=== PATIENT | female | born 1945 | race Caucasian/White ===

== ENCOUNTER 2017-10-30 09:33 | Inpatient (IN) | payer OTHER, MEDICARE ==
[~2017-10-30] VITALS: Ht 152.4 cm; Wt 55.0 kg
[~2017-10-30 09:33] MED LIST: ACIDOPHILUS1 CAP PO; ALPH-E-MIXED-4400 IU PO; ASPIRIN CHILDRE81 MG PO; ATENOLOL25 M1 PO; BENZONATATE100 MG PO; BUPROPION XL300 M1 PO; BUTALB-ACETAMI1 EAC1 PO; BUTALBITAL, ACE1 CA1 PO; CALCIUM600 M3 PO; COLACE100 MG PO; COMPAZINE10 MG PO; CYTOMEL5 MCG PO; DIAZEPAM5 M1 PO; ESTRACE1 MG PO; FISH OIL 1,2001 EAC2 PO; FLUOXETINE HCL60 MG PO; K-DUR 20MEQ TA20 MEQ PO; LEVOTHYROXINE137 MCG PO; MORPHINE SULFAT15 M2 PO; MOTRIN 800MG T800 MG PO; MULTIPLE VITAM1 EAC2 PO; OXYBUTYNIN CHLOR5 M2 PO; OXYCODONE HCL20 M2 PO; OXYCODONE HYDRO15 MG PO; OXYCONTIN30 M1 PO; OXYCONTIN80 MG PO; PERCOCET 325 MG1 TAB PO; PRAVACHOL40 M1 PO; PRILOSEC OTC20 M1 PO; TOPAMAX50 M1 PO; TOPIRAMATE50 MG PO; ZOFRAN ODT4 MG PO
--- NOTE | 2017-10-30 12:06 | ED GENERAL ADULT ---
History of Present Illness General Chief Complaint: Abdominal Pain/Flank Pain Stated Complaint: ABD PAIN +DIARRHEA Source: patient Exam Limitations: poor historian Vital Signs & Intake/Output Vital Signs & Intake/Output Vital Signs Date Time Temp Pulse Resp B/P B/P Pulse O2 O2 Flow FiO2 Mean Ox Delivery Rate 11/01 0659 86 184/84 11/01 0620 98.4 69 20 198/86 100 Room Air 10/313 98.6 70 20 148/80 97 Room Air 10/31 2024 100.1 70 20 180/80 97 Room Air 10/31 2022 70 180/80 10/31 1358 98.4 62 20 100/70 10/31 1342 98.4 62 20 100/70 97 Room Air ED Intake and Output 11/01 0000 10/31 1200 Intake Total 465 660 Output Total 200 200 Balance 265 460 Intake, IV 225 600 Intake, Oral 240 60 Number 1 Bowel Movements Output, Urine 200 200 Patient 120 lb Weight Weight Bed scale Measurement Method Allergies Coded Allergies: cephalexin (Severe, HIVES 01/03/17) codeine (Severe, HIVES 01/03/17) meperidine (Severe, SYNCOPE 01/03/17) Triage Note: C/O WORSENING ABDOMINAL PAIN, DIARRHEA, NO APPETITE, SWEATING X 1 WEEK. Triage Nurses Notes Reviewed? yes Onset: Abrupt Duration: week(s):, constant Timing: recent history Injury Environment: home Severity: moderate, severe HPI: 72-year-old female comes into the emergency room with multiple complaints. She reports that she was started on Cymbalta about a month ago. She started to experience neurological side effects with short-term memory loss and was very forgetful. She reports that she's been having abdominal cramping and diarrhea. The symptoms began going on for a few weeks but worse over the past week. She reports about a 40 pound weight loss over the course of the last few months. She denies any vomiting or nausea. Multiple previous abdominal surgeries. Patient only able to drink oral liquids. No blood in her stool. (Bo Chu) Reconcile Medications Atenolol 25 MG TABLET 1 TAB PO TID BP (Reported) Bupropion HCl (Bupropion XL) 300 MG TAB.ER.24H 1 TAB PO QAM MENTAL HEALTH ( Reported) Buspirone HCl 5 MG TABLET 0.5 TAB PO BID MENTAL HEALTH (Reported) Butalb/Acetaminophen/Caffeine (Ofvkml-Jpquuyel-Bvcm 50-300-40) 50 MG-300 MG-40 MG CAPSULE 1 CAP PO TID HEADACHE (Reported) Diazepam 5 MG TABLET 1 TAB PO BIDP PRN PAIN (Reported) Docusate Sodium (Stool Softener) 100 MG CAPSULE 1 CAP PO BID STOMACH PROBLEMS (Reported) Estradiol (Estrace) 1 MG TABLET 0.5 TAB PO DAILY HRT (Reported) Fluoxetine HCl 60 MG TABLET 1 TAB PO DAILY MENTAL HEALTH (Reported) Levothyroxine Sodium 137 MCG TABLET 1 TAB PO DAILY AC THYROID (Reported) Linaclotide (Linzess) 290 MCG CAPSULE 1 CAP PO DAILY GI (Reported) Losartan Potassium 50 MG TABLET 1 TAB PO DAILY HEART (Reported) Omeprazole Magnesium (Prilosec Otc) 20 MG TABLET.DR 1 TAB PO BID GI (Reported ) Oxycodone HCl 20 MG TABLET 1 TAB PO Q6 PAIN (Reported) Oxycodone HCl (Oxycontin) 30 MG TAB.ER.12H 1 TAB PO TID PAIN (Reported) Oxycodone Myristate (Xtampza ER) 27 MG CAP.SPR.12 1 TAB PO BID PAIN (Reported ) Pantoprazole Sodium (Protonix) 40 MG TABLET.DR 1 TAB PO DAILY GI (Reported) Pravastatin Sodium (Pravachol) 40 MG TABLET 1 TAB PO DAILY CHOLESTEROL ( Reported) Topiramate (Topamax) 50 MG TABLET 1 TAB PO BID HEADACHE (Reported) Ubidecarenone (Co Q-10) 100 MG CAPSULE 1 CAP PO DAILY SUPPLEMENT (Reported) (Gisela CABALLERO,[facility]) Past History Travel History Traveled to [place] past 21 day No Medical History Any Pertinent Medical History? 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 No (Francesco HARVEYBo) Review of Systems Review of Systems Constitutional: Reports: no symptoms. EENTM: Reports: no symptoms. Respiratory: Reports: no symptoms. Cardiovascular: Reports: no symptoms. GI: Reports: see HPI. Genitourinary: Reports: no symptoms. Musculoskeletal: Reports: no symptoms. Skin: Reports: no symptoms. Neurological/Psychological: Reports: see HPI. Hematologic/Endocrine: Reports: no symptoms. Immunologic/Allergic: Reports: no symptoms. All Other Systems: Reviewed and Negative (Bo Chu) Physical Exam Physical Exam General Appearance: well developed/nourished, alert, awake, mild distress Head: atraumatic Eyes: Bilateral: normal appearance. Ears, Nose, Throat: normal ENT inspection, hearing grossly normal Neck: normal inspection Respiratory: normal breath sounds, no respiratory distress Cardiovascular: regular rate/rhythm Gastrointestinal: soft, tenderness Back: normal inspection Extremities: normal inspection, no edema Neurologic/Psych: awake, alert, oriented x 3 Skin: intact, normal color Core Measures ACS in differential dx? No CVA/TIA Diagnosis: No Sepsis Present: No Sepsis Focused Exam Completed? No (Bo Chu) Progress Differential Diagnoses I considered the following diagnoses in my evaluation of the patient: C. difficile colitis, colon CA, malignancy, diverticulitis, bowel obstruction, viral syndrome, medication side effect, Plan of Care: Orders Procedure Date/time Status BASIC ELECTROLYTES PLUS BUN&CR 11/01 0600 Active VITAMIN B12 10/31 0858 Complete Lab Add-on Test 10/31 UNK Active Nursing Misc 10/31 UNK Active Current Medications Sig/Talat Start time Last Medication Dose Stop Time Status Admin Dextrose/Sodium 1,000 ML Q13H 10/31 1915 AC 11/01 Chloride 0607 (D5W-1/2 Normal Saline 1000ML) Oxycodone HCl 20 MG Q6 10/31 1800 AC 10/31 (Roxicodone) 2342 Pravastatin Sodium 40 MG 1700 10/31 1700 AC 10/31 (Pravachol) 1817 Diazepam 5 MG BID PRN 10/31 1545 AC (Valium) Bupropion HCl 300 MG QAM 10/31 0900 AC 10/31 (Wellbutrin XL) 0852 Estradiol 0.5 MG DAILY 10/31 0900 AC 10/31 (Estrace) 0853 Fluoxetine HCl 60 MG DAILY 10/31 0900 AC 10/31 (Prozac) 0852 Losartan Potassium 50 MG DAILY 10/31 09 AC 11/01 (Cozaar) 0659 Topiramate 50 MG BID 10/31 899 AC 10/31 (Topamax) 2022 Levothyroxine Sodium 0.137 MG DAILY AC 10/31 07 AC 11/01 (Synthroid) 05 Omeprazole 20 MG DAILY AC 10/31 07 AC 11/01 (Prilosec) 05 Heparin Sodium 5,000 UNIT Q8 10/31 599 AC (Porcine) Atenolol 25 MG TID 10/30 2099 AC 10/31 (Tenormin) 2022 Buspirone HCl 2.5 MG BID 10/30 2099 AC 10/31 (Buspar) 2023 Docusate Sodium 100 MG BID 10/30 2099 AC (Colace) Hydromorphone HCl 1 MG Q3P PRN 10/31 1999 AC 11/01 (Dilaudid) 05 Laboratory Tests 10/31/17 1847: Carotene Pending 10/31/17 1800: Ref Lab Test Result Pending Diagnostic Imaging: Viewed by Me: Radiology Read, CT Scan. Discussed w/RAD: Radiology Read, CT Scan. Radiology Impression: PATIENT: LOR POSEY PRESENT AGE: 72 PATIENT ACCOUNT NO: [id number] : 47 LOCATION: [facility] ORDERING PHYSICIAN: Bo HARVEY SERVICE DATE: 10/30/171205 EXAM TYPE: CAT - CT ABD & PELVIS W IV CONTRAST EXAMINATION: CT ABDOMEN AND PELVIS WITH CONTRAST CLINICAL INFORMATION: 72-year-old female with abdominal pain. Palpable mass lower abdomen. Weight loss. Diarrhea. COMPARISON: CT of the abdomen and pelvis done on 01/03/2017. TECHNIQUE: Multidetector volumetric imaging was performed of the abdomen and pelvis following IV administration of 95 mL of Optiray 320 intravenous contrast. Sagittal and coronal reformatted images were obtained on the technologist's workstation. DLP: 252.6 mGy-cm FINDINGS: LUNG BASES: Nonspecific pleural-based triangular airspace opacity is noted at right lung base, unchanged. The remainder of the lung perez are clear. LIVER, GALLBLADDER, AND BILIARY TREE: Subtle sub-5 mm hypodensity is noted within segment 6/7 of right lobe of the liver (image 163/616 series 3), appears unchanged. The remainder of the liver appears unremarkable. The portal, hepatic veins are patent. The gallbladder is surgically absent. There is no intrahepatic biliary ductal dilatation present. The extrahepatic biliary duct is mildly dilated, unchanged. PANCREAS: Mostly atrophied, unchanged. SPLEEN: Unremarkable. ADRENAL GLANDS: No discrete mass present. KIDNEYS AND URETERS: Large exophytic cortical renal cyst is noted at the inferior pole of the left kidney, measures approximately 6 cm, unchanged. Otherwise both kidneys are unremarkable, unchanged. BLADDER: Unremarkable. GASTROINTESTINAL TRACT: Postsurgical changes are noted at the sigmoid colon, unchanged. The remainder of the visualized large bowel is unremarkable. The stomach is suboptimally distended. The small bowel loops are decompressed. The previously seen mild small bowel wall thickening, hyperemia is no longer visualized. The appendix is visualized at right iliac fossa, unchanged. Specifically no abnormal bowel dilatation, air-fluid level suggestive of obstruction present. ABDOMINAL WALL: Fat-containing small ventral hernia is noted slightly to the right of the midline just above the level of the symphysis pubis (see the pollard images), unchanged. LYMPH NODES: There are no pathologically enlarged retroperitoneal, mesenteric, pelvic and/or inguinal, groin lymphadenopathy present. VASCULAR: Mild diffuse atherosclerotic disease is noted within the aorta and its branches without aneurysm formation. PELVIC VISCERA: There is no pelvic mass present. There is no free fluid and/or free air present. OSSEOUS STRUCTURES: Intervertebral fusion is noted at L3-L4 with superimposed multilevel degenerative spondylosis. No significant change. IMPRESSION: No CT evidence of any acute intra-abdominal and/or intrapelvic pathology present. Specifically, previously identified abnormal morphologic appearance of the distal small bowel within the right lower quadrant is no longer reproduced. Currently no CT evidence of any bowel obstruction or perforation or discrete intra-abdominal and/or intrapelvic mass present. DICTATED BY: Riaz Latif MD DATE/TIME DICTATED:10/30/171338 ASSEMBLER ENGINE:ARMOND DATE/TIME TRANSCRIBED:10/30/171338 CONFIDENTIAL, DO NOT COPY WITHOUT APPROPRIATE AUTHORIZATION. <Electronically signed in Other Vendor System> SIGNED BY: Riaz Latif MD 10/30/17 1410, PATIENT: LOR POSEY PRESENT AGE: 72 PATIENT ACCOUNT NO: [id number] : 47 LOCATION: [facility] ORDERING PHYSICIAN: Bo HARVEY SERVICE DATE: 10/30/17 EXAM TYPE: RAD - XRY-PORTABLE CHEST XRAY EXAMINATION: XR PORTABLE CHEST CLINICAL INFORMATION: Weight loss. Suspected mass. COMPARISON: Chest done on 12/27/2014. TECHNIQUE: Portable frontal view of the chest was obtained. FINDINGS: Both lungs are symmetrically expanded, and appear clear. The cardiac mediastinal silhouette is within normal limit. There is no pleural effusion or pneumothorax present. The visualized upper abdomen is unremarkable. IMPRESSION: No acute cardiopulmonary disease. Specifically, no no radiographic evidence of any discrete" lung mass" identified. DICTATED BY: Riaz Latif MD DATE/TIME DICTATED:10/30/171352 ASSEMBLER ENGINE:ARMOND DATE/TIME TRANSCRIBED:10/30/171352 CONFIDENTIAL, DO NOT COPY WITHOUT APPROPRIATE AUTHORIZATION. <Electronically signed in Other Vendor System> SIGNED BY: Riaz Latif MD 10/30/171357 Initial ED EKG: normal sinus rhythm, rate (68), BORDERLINE T WAVE ABNORMALITIES (Bo Chu) Departure Departure Disposition: STILL A PATIENT Condition: Stable Clinical Impression Primary Impression: Intractable abdominal pain Secondary Impressions: Diarrhea, Hypertension Referrals: Jeb CABALLERO,Sung Wagoner (PCP/Family) Departure Forms: Customer Survey General Discharge Information Admission Note Spoke With: Lucrecia Romeo MD Documentation of Exam: Documentation of any treatments & extenuating circumstances including Concerns Regarding Discharge (functional status, medication knowledge or non-compliance, living conditions, etc.) that warrant an admission rather than observation: GI consultation. Gentle IV hydration. Repeat labs. Med management. Blood pressure control. Possibly cardiac consultation. Psych consultation. Medically not safe for discharge at this time. Patient will likely require greater than 72 hours of care. (Bo Chu) PA/EDGE POLISHER Co-Sign Statement Statement: ED Attending supervision documentation- [] I saw and evaluated the patient. I have also reviewed all the pertinent lab results and diagnostic results. I agree with the findings and the plan of care as documented in the PA's/EDGE POLISHER's documentation. [x] I have reviewed the ED Record and agree with the PA's/EDGE POLISHER's documentation. [] Additions or exceptions (if any) to the PAs/EDGE POLISHER's note and plan are summarized below: [] (Gisela CABALLERO,Balaji) Critical Care Note Critical Care Note Critical Care Time: 30-74 min (35) (Francesco HARVEY,Bo)
[2017-10-30 12:31] LABS: ABSOLUTE BASOPHIL COUNT 0 /CUMM (0.0-0.2); ABSOLUTE EOSINOPHIL COUNT 0 /CUMM (0.0-0.7); ABSOLUTE GRANULOCYTE CT 3.5 /CUMM (1.4-6.5); ABSOLUTE LYMPH COUNT 1.6 /CUMM (1.2-3.4); ABSOLUTE MONOCYTE COUNT 0.4 /CUMM (0.10-0.60); BASOPHIL % 0.5 % (0.0-2.0); EOSINOPHIL % 0.6 % (0-5); GRANULOCYTE % 62.8 % (42.2-75.2); HEMATOCRIT 42.5 % (37-47); MEAN CORPUSCULAR HGB CONC 33.8 G/DL (33.0-37.0); MEAN CORPUSCULAR VOLUME 85.7 FL (81.0-99.0); MEAN PLATELET VOLUME 8.5 FL (7.4-10.4); PLATELET COUNT 216 /CUMM (130-400); RBC DISTRIBUTION WIDTH 17.1 % (11.5-14.5); RED BLOOD CELL CT 4.95 /CUMM (4.20-5.40); WHITE BLOOD CELL COUNT 5.6 /CUMM (4.8-10.8)
[2017-10-30] MEDS ORDERED: XTAMPZA ER27 MG PO (12:31)
[2017-10-30] MEDS ORDERED: BUSPIRONE HCL5 M1 PO (12:33)
[2017-10-30] MEDS ORDERED: STOOL SOFTENER100 M3 PO (12:34)
[2017-10-30] MEDS ORDERED: PROTONIX40 M3 PO (12:35)
[2017-10-30] MEDS ORDERED: LINZESS290 MC1 PO (12:35)
[2017-10-30] MEDS ORDERED: CO Q-10100 MG PO (12:35)
[2017-10-30] MEDS ORDERED: DIAZEPAM5 M1 PO (12:36)
[2017-10-30] MEDS ORDERED: DULOXETINE HCL20 MG PO (12:36)
[2017-10-30] MEDS ORDERED: LOSARTAN POTASS50 M1 PO (12:36)
--- NOTE | 2017-10-30 13:58 | RADIOLOGY REPORT ---
EXAMINATION: XR PORTABLE CHEST CLINICAL INFORMATION: Weight loss. Suspected mass. COMPARISON: Chest done on 12/27/2014. TECHNIQUE: Portable frontal view of the chest was obtained. FINDINGS: Both lungs are symmetrically expanded, and appear clear. The cardiac mediastinal silhouette is within normal limit. There is no pleural effusion or pneumothorax present. The visualized upper abdomen is unremarkable. IMPRESSION: No acute cardiopulmonary disease. Specifically, no no radiographic evidence of any discrete" lung mass" identified.
--- NOTE | 2017-10-30 14:10 | CT SCAN REPORT ---
EXAMINATION: CT ABDOMEN AND PELVIS WITH CONTRAST CLINICAL INFORMATION: 72-year-old female with abdominal pain. Palpable mass lower abdomen. Weight loss. Diarrhea. COMPARISON: CT of the abdomen and pelvis done on 01/03/2017. TECHNIQUE: Multidetector volumetric imaging was performed of the abdomen and pelvis following IV administration of 95 mL of Optiray 320 intravenous contrast. Sagittal and coronal reformatted images were obtained on the technologist's workstation. DLP: 252.6 mGy-cm FINDINGS: LUNG BASES: Nonspecific pleural-based triangular airspace opacity is noted at right lung base, unchanged. The remainder of the lung perez are clear. LIVER, GALLBLADDER, AND BILIARY TREE: Subtle sub-5 mm hypodensity is noted within segment 6/7 of right lobe of the liver (image 163/616 series 3), appears unchanged. The remainder of the liver appears unremarkable. The portal, hepatic veins are patent. The gallbladder is surgically absent. There is no intrahepatic biliary ductal dilatation present. The extrahepatic biliary duct is mildly dilated, unchanged. PANCREAS: Mostly atrophied, unchanged. SPLEEN: Unremarkable. ADRENAL GLANDS: No discrete mass present. KIDNEYS AND URETERS: Large exophytic cortical renal cyst is noted at the inferior pole of the left kidney, measures approximately 6 cm, unchanged. Otherwise both kidneys are unremarkable, unchanged. BLADDER: Unremarkable. GASTROINTESTINAL TRACT: Postsurgical changes are noted at the sigmoid colon, unchanged. The remainder of the visualized large bowel is unremarkable. The stomach is suboptimally distended. The small bowel loops are decompressed. The previously seen mild small bowel wall thickening, hyperemia is no longer visualized. The appendix is visualized at right iliac fossa, unchanged. Specifically no abnormal bowel dilatation, air-fluid level suggestive of obstruction present. ABDOMINAL WALL: Fat-containing small ventral hernia is noted slightly to the right of the midline just above the level of the symphysis pubis (see the pollard images), unchanged. LYMPH NODES: There are no pathologically enlarged retroperitoneal, mesenteric, pelvic and/or inguinal, groin lymphadenopathy present. VASCULAR: Mild diffuse atherosclerotic disease is noted within the aorta and its branches without aneurysm formation. PELVIC VISCERA: There is no pelvic mass present. There is no free fluid and/or free air present. OSSEOUS STRUCTURES: Intervertebral fusion is noted at L3-L4 with superimposed multilevel degenerative spondylosis. No significant change. IMPRESSION: No CT evidence of any acute intra-abdominal and/or intrapelvic pathology present. Specifically, previously identified abnormal morphologic appearance of the distal small bowel within the right lower quadrant is no longer reproduced. Currently no CT evidence of any bowel obstruction or perforation or discrete intra-abdominal and/or intrapelvic mass present.
--- NOTE | 2017-10-30 17:55 | History & Physical ---
Gurpreet Pastor 10/30/17 3114: General Information and HPI MD Statement: I have seen and personally examined LOR POSEY and documented this H&P. The patient is a 72 year old F who presented with a patient stated chief complaint of [intractable abdominal pain]. Source of Information: patient, family, old records Exam Limitations: poor historian History of Present Illness: Ms. posey is a 72-year-old female with a past medical history of migraines, hypertension, hypothyroid, chronic pain syndrome, depression who presents with a one-month history of intractable abdominal pain described as shaking twisting coiling, associated with weakness, nonbloody diarrhea, mental fatigue, and a 40 pound weight loss 20 of which were intentional in the setting of starting Cymbalta 4 weeks ago and discontinuing it 2 weeks ago. Patient states that she decided to come in today because the pain continually gets worse and the diarrhea is worse. Patient also states that she has poor p.o. intake, and is only drinking cristal david for the past week. Per patient, these symptoms all started after visiting a new psychiatrist as her previous psychiatrist retired. Patient states that "that devil" started her on Cymbalta, and decreased her Prozac from 80 mg to 60 mg. Patient states that after starting the Cymbalta, she became mentally foggy, aggressive in language, and she began having severe debilitating abdominal pain along with diarrhea. Patient states that she took the medication for 2 weeks, and then discontinued it due to the symptoms. Patient states that the mental fog did improve, however her diarrhea and her abdominal pain continued to get worse. Patient states that she has had previous workups in the past, most recently 2014, for the same abdominal pain, but the Cymbalta seems to have triggered it mostly so. Patient also states that she is incredibly anxious, having run out of her Valium prescription and having to halve and quarter her tablets over the past 4 weeks. Patient does deny vomiting , and admits that initially she tried to lose 20 pounds, but does say that the other 20 pounds were unintentional. Patient states that everything she is taken has not improved the pain, and eating exacerbates the pain. Patient states that the pain is nonradiating, but does feel like it twists her stomach into knots. Patient states pain is constant, unrelenting, unremitting. Patient expresses extreme anxiety about Cymbalta. Patient also was hypertensive, but states that she did not take any of her medications today. Past medical history: Migraine, hypertension, hypothyroid, chronic pain syndrome , depression Allergies: Denies Past surgical history: Multiple back surgeries, laminectomy, cervical spinal fusion Family history: Noncontributory Social history: Denies smoking, drinking, illicit drug use Review of systems: POSITIVE FOR: 40 pound weight loss 20 which is intentional, nausea, diarrhea nonbloody NEGATIVE FOR: Fevers/chills/blurred vision/chest pain/palpitations/shortness of breath/urinary symptoms/lower extremity edema Allergies/Medications Allergies: Coded Allergies: cephalexin (Severe, HIVES 01/03/17) codeine (Severe, HIVES 01/03/17) meperidine (Severe, SYNCOPE 01/03/17) Past History Travel History Traveled to [place] past 21 day No Medical History Neurological: NONE EENT: NONE Cardiovascular: hypertension Respiratory: NONE Gastrointestinal: NONE Hepatic: NONE Renal: NONE Musculoskeletal: chronic back pain, CHRONIC NECK PAIN Psychiatric: NONE Endocrine: hypothyroidism Blood Disorders: NONE Cancer(s): NONE TELECOMMUNICATIONS SUPPORT/Reproductive: NONE History of MRSA: No History of VRE: No History of CDIFF: No Surgical History Surgical History: cholecystectomy, colon resection, , hysterectomy, BOWEL RESECTION Past Family/Social History Psychosocial History Services at Home: None ETOH Use: denies use Review of Systems Review of Systems Constitutional: Reports: see HPI. Exam & Diagnostic Data Last 24 Hrs of Vital Signs/I&O Vital Signs Date Time Temp Pulse Resp B/P B/P Pulse O2 O2 Flow FiO2 Mean Ox Delivery Rate 10/30 1932 98.7 67 18 134/61 96 Room Air 10/30 1705 72 18 149/63 10/30 1705 72 18 149/63 10/30 1705 98.4 72 18 149/63 97 Room Air 10/30 1457 98.4 74 18 209/83 97 10/30 1225 Room Air 10/30 1118 98.8 63 18 218/91 100 Intake & Output 10/30 1600 10/30 0800 10/30 0000 Intake Total Output Total Balance Patient 115 lb Weight Weight Reported by Patient Measurement Method Physical Exam General Appearance Alert, Oriented X3, Cooperative, No Acute Distress Skin No Significant Lesion Skin Temp/Moisture Exam: Warm/Dry Cardiovascular Regular Rate, Normal S1, Normal S2 Lungs Clear to Auscultation, Normal Air Movement Abdomen GENERALIZED TENDERNESS Neurological Normal Speech, Sensation Intact Extremities No Edema Last 24 Hrs of Labs/Jacob: Laboratory Tests 10/30/17 1455: Lactic Acid Cancelled 10/30/17 1215: Anion Gap 9, Estimated GFR > 60, BUN/Creatinine Ratio 7.1, Glucose 107 H, Lactic Acid 1.0, Calcium 9.3, Total Bilirubin 0.4, AST 17, ALT 24, Alkaline Phosphatase 114, Troponin I < 0.01, Total Protein 6.6, Albumin 3.8, Globulin 2.8 , Albumin/Globulin Ratio 1.4, Amylase 39, Lipase 57, CBC w Diff NO MAN DIFF REQ, RBC 4.95, MCV 85.7, MCH 29.0, MCHC 33.8, RDW 17.1 H, MPV 8.5, Gran % 62.8, Lymphocytes % 28.1, Monocytes % 8.0, Eosinophils % 0.6, Basophils % 0.5, Absolute Granulocytes 3.5, Absolute Lymphocytes 1.6, Absolute Monocytes 0.4, Absolute Eosinophils 0, Absolute Basophils 0 Microbiology 10/30 1953 STOOL: Clostridium difficile Toxin A & B - COLB 10/30 1953 STOOL: Stool Culture - COLB Assessment/Plan Assessment: Ms. posey is a 72-year-old female with a past medical history of migraines, hypertension, hypothyroid, chronic pain syndrome, depression who presents with a one-month history of intractable abdominal pain described as shaking twisting coiling, associated with weakness, nonbloody diarrhea, mental fatigue, and a 40 pound weight loss 20 of which were intentional in the setting of starting Cymbalta 4 weeks ago and discontinuing it 2 weeks ago. She is admitted for intractable abdominal pain. #Abdominal pain and diarrhea #Hypokalemia secondary to diarrhea #Hypertension of her medications. Patient was given her atenolol and losartan, which improved her blood pressure #Migraine #Hypothyroidism #Chronic pain syndrome DVT prophylaxis IV access Full code Regular diet Disposition As Ranked By This Provider Problem List: 1. Diarrhea 2. Hypertension 3. Intractable abdominal pain Core Measures/Misc (12/22) Acute Coronary Syndrome ACS Diagnosis: No Congestive Heart Failure Congestive Heart Failure Diagnosis No Cerebrovascular Accident CVA/TIA Diagnosis: No VTE (View Protocol) VTE Risk Factors Age>40 No Mechanical VTE Prophylaxis d/t N/A MechProphylax Ordered No VTE Pharm Prophylaxis d/t NA PharmProphylax ordered Sepsis (View protocol) Sepsis Present: No If YES complete Sepsis Event Note If YES complete Sepsis Event Note Oriana Jenkins 10/30/17 0280: General Information and HPI Allergies/Medications Home Med list Atenolol 25 MG TABLET 1 TAB PO TID BP (Reported) Bupropion HCl (Bupropion XL) 300 MG TAB.ER.24H 1 TAB PO QAM MENTAL HEALTH ( Reported) Buspirone HCl 5 MG TABLET 0.5 TAB PO BID MENTAL HEALTH (Reported) Butalb/Acetaminophen/Caffeine (Eqsgwd-Qwxxftiy-Fxzk 50-300-40) 50 MG-300 MG-40 MG CAPSULE 1 CAP PO TID HEADACHE (Reported) Diazepam 5 MG TABLET 1 TAB PO BIDP PRN PAIN (Reported) Docusate Sodium (Stool Softener) 100 MG CAPSULE 1 CAP PO BID STOMACH PROBLEMS (Reported) Estradiol (Estrace) 1 MG TABLET 0.5 TAB PO DAILY HRT (Reported) Fluoxetine HCl 60 MG TABLET 1 TAB PO DAILY MENTAL HEALTH (Reported) Levothyroxine Sodium 137 MCG TABLET 1 TAB PO DAILY AC THYROID (Reported) Linaclotide (Linzess) 290 MCG CAPSULE 1 CAP PO DAILY GI (Reported) Losartan Potassium 50 MG TABLET 1 TAB PO DAILY HEART (Reported) Omeprazole Magnesium (Prilosec Otc) 20 MG TABLET.DR 1 TAB PO BID GI (Reported ) Oxycodone HCl 20 MG TABLET 1 TAB PO Q6 PAIN (Reported) Oxycodone HCl (Oxycontin) 30 MG TAB.ER.12H 1 TAB PO TID PAIN (Reported) Oxycodone Myristate (Xtampza ER) 27 MG CAP.SPR.12 1 TAB PO BID PAIN (Reported ) Pantoprazole Sodium (Protonix) 40 MG TABLET.DR 1 TAB PO DAILY GI (Reported) Pravastatin Sodium (Pravachol) 40 MG TABLET 1 TAB PO DAILY CHOLESTEROL ( Reported) Topiramate (Topamax) 50 MG TABLET 1 TAB PO BID HEADACHE (Reported) Ubidecarenone (Co Q-10) 100 MG CAPSULE 1 CAP PO DAILY SUPPLEMENT (Reported) Core Measures/Misc (12/22) Sepsis (View protocol) If YES complete Sepsis Event Note If YES complete Sepsis Event Note Resident Review Statement Resident Statement: examined this patient, discussed with regulatory affairs intern, agreed with regulatory affairs intern, discussed with family, reviewed EMR data (avail), discussed with nursing , discussed with case mgmt, reviewed images, amended to note Other Findings: Ms. Posey is a 72yo F w/ PMH of Chronic Diarrhea. migraines, HTN, HypoTSH, chronic pain syndrome, depression, presented ER for intractable ab pain x 1 month, weakness, chronic non-bloody diarrhea, mental fatigue, and 40lbs weightloss attributted to cymbalta. Please refer to HPI as above. On admission, Vitals: Stable afebrile, BP 218/91 -> 149/63, 97% RA Physical exam as above -CBC: unremarkable -BMP: Hypokalemia 3.2, otherwise unremarkable -CXR: No Acute -Ab CT: No CT evidence of any acute intra-abdominal and/or intrapelvic pathology present. Specifically, previously identified abnormal morphologic appearance of the distal small bowel within the right lower quadrant is no longer reproduced. Currently no CT evidence of any bowel obstruction or perforation or discrete intra-abdominal and/or intrapelvic mass present. -EKG: NSR w/o significant ST-T abnormalities. -Last Echo: None in our system -Interventions in ER: Dilaudid 1mg x 2, Ativan 0.5 x 1, Losartan + Atenolol x 1 Problem list/Assessment/Hospital Course: #Abdominal pain w/ unclear etiology #Hypokalemia 2/2 chronic diarrhea #PMH of Chronic diarrhea - Admit to general medicine - Vitals per protocol, monitor I&O per protocol. - Unlikely ischemic etiology for ab pain as patient's lactic acid was 1.0. CT ab has no clear pathology identified. - Pain control w/ dilaudid 1mg q3hPRN, may hold for drowsiness. - Hold home meds of oral opioid. May continue at discharge. - Pending stool cultures - Pending GI consult - COntinue other home meds, except cymbalta. DVT prophylaxis Heparin SC + ALPS Heart Healthy Diet IV Access: Peripheral IV Full Code Marlyn CABALLERO,Tess 10/30/171955: Core Measures/Misc (12/22) Sepsis (View protocol) If YES complete Sepsis Event Note If YES complete Sepsis Event Note Attending MD Review Statement Attending Statement Attending MD Statement: examined this patient, discuss w/resident/PA/DRILL RUNNER HELPER, agreed w/resident/PA/DRILL RUNNER HELPER, discussed with family, reviewed EMR data (avail), discussed with nursing, amended to note Attending Assessment/Plan: Patient is a 72-year-old female history of chronic pain syndrome. She has chronic back pain and has had multiple spine surgeries. She has had a nerve stimulator placed in the past which was removed due to infection. She follows with a pain management clinic and is currently on oxycodone. She used to be on OxyContin however this was switched by her insurance company for the patient to Xtampza. Her medical history is also seen again for hypothyroidism, hypertension and depression for which she is on fluoxetine and bupropion. She reports that she was prescribed Cymbalta recently but then developed side effects would include that memory loss and increased agitation. She presents for evaluation of progressively worsening abdominal pain. She admits that at baseline she has chronic abdominal pain which she is able to tolerate. She states that the pain has been progressive to the point where she is is very hesitant about eating. She admits to nausea but denies any vomiting. She reports loose bowel movement every day consisting of yellowish liquid stool. Denies any bright red blood per rectum. She arrived emergency room afebrile hemodynamically stable. Workup was unrevealing including CT scan of the abdomen. She has mild hypokalemia on her labs. She reports improvement with Dilaudid administered in the emergency room will continue to complain of abdominal discomfort. In view of this she was referred to medical service for further evaluation. I did examine the patient with the at the bedside. Lying in bed complaining of diffuse abdominal discomfort. She was requesting Dilaudid for control of abdominal pain stating that routine oral medications did nothing to help her pain. On examination she is not in any respiratory distress. Lungs are clear bilaterally. Heart sounds are regular. Abdomen is nondistended soft. with normal bowel sounds. She had mild tenderness in the lower abdomen but stated that she felt like micturating. She has no peripheral edema. Problems 1. Intractable abdominal pain. 2. Diarrhea Plan: -Etiology of her acute on chronic abdominal pain is unclear at present. Her lactic acid level is 1.0 making mesenteric ischemia less likely. CT abdomen and pelvis shows no obvious pathology. -Monitor patient overnight on the medical unit. -Pain control with IV Dilaudid 1 mg every 3 hours as needed pain hold for drowsiness. -Patient reports no improvement with her oral opioid regimen. Recommend holding this for now. This may be reinstated at the time of discharge and pain regimen optimized at that time. -Send stool for WBC, culture and Clostridium difficile. -Please consult patients gastroenterology service. - Continue her routine antihypertensive and psychiatric regimen. -DVT prophylaxis with heparin subcu. Attending MD Review Statement Attending Statement Attending MD Statement: examined this patient, discuss w/resident/PA/DRILL RUNNER HELPER, agreed w/resident/PA/DRILL RUNNER HELPER, discussed with family, reviewed EMR data (avail), discussed with nursing, amended to note Attending Assessment/Plan: Patient is a 72-year-old female history of chronic pain syndrome. She has chronic back pain and has had multiple spine surgeries. She has had a nerve stimulator placed in the past which was removed due to infection. She follows with a pain management clinic and is currently on oxycodone. She used to be on OxyContin however this was switched by her insurance company for the patient to Xtampza. Her medical history is also seen again for hypothyroidism, hypertension and depression for which she is on fluoxetine and bupropion. She reports that she was prescribed Cymbalta recently but then developed side effects would include that memory loss and increased agitation. She presents for evaluation of progressively worsening abdominal pain. She admits that at baseline she has chronic abdominal pain which she is able to tolerate. She states that the pain has been progressive to the point where she is is very hesitant about eating. She admits to nausea but denies any vomiting. She reports loose bowel movement every day consisting of yellowish liquid stool. Denies any bright red blood per rectum. She arrived emergency room afebrile hemodynamically stable. Workup was unrevealing including CT scan of the abdomen. She has mild hypokalemia on her labs. She reports improvement with Dilaudid administered in the emergency room will continue to complain of abdominal discomfort. In view of this she was referred to medical service for further evaluation. I did examine the patient with the at the bedside. Lying in bed complaining of diffuse abdominal discomfort. She was requesting Dilaudid for control of abdominal pain stating that routine oral medications did nothing to help her pain. On examination she is not in any respiratory distress. Lungs are clear bilaterally. Heart sounds are regular. Abdomen is nondistended soft. with normal bowel sounds. She had mild tenderness in the lower abdomen but stated that she felt like micturating. She has no peripheral edema. Problems 1. Intractable abdominal pain. 2. Diarrhea Plan: -Etiology of her acute on chronic abdominal pain is unclear at present. Her lactic acid level is 1.0 making mesenteric ischemia less likely. CT abdomen and pelvis shows no obvious pathology. -Monitor patient overnight on the medical unit. -Pain control with IV Dilaudid 1 mg every 3 hours as needed pain hold for drowsiness. -Patient reports no improvement with her oral opioid regimen. Recommend holding this for now. This may be reinstated at the time of discharge and pain regimen optimized at that time. -Send stool for WBC, culture and Clostridium difficile. -Please consult patients gastroenterology service. - Continue her routine antihypertensive and psychiatric regimen. -DVT prophylaxis with heparin subcu.
[2017-10-30 22:06] VITALS: BP 122/70
[2017-10-31 07:01] VITALS: BP 130/70
--- NOTE | 2017-10-31 08:32 | PN- Housestaff ---
Gurpreet Pastor 10/31/17 0832: Subjective Follow-up For: intractable abdominal pain Subjective: Patient seen and examined at bedside. Patient states that she had one episode of diarrhea overnight. Patient states that the Dilaudid is certainly helping her pain, although food and liquids still causes her stomach to turn and twist inside. Patient states that she slept okay last night. Patient states that she does feel better than admission, but the pain is still unbearable. Patient states that the pain is just inside, nonradiating, feels like her stomach is turning on itself. Denies fever/chills/night sweats/chest pain/urinary symptoms /lower extremity edema. Review of Systems Constitutional: Reports: see HPI. Objective Last 24 Hrs of Vital Signs/I&O Vital Signs Date Time Temp Pulse Resp B/P B/P Pulse O2 O2 Flow FiO2 Mean Ox Delivery Rate 10/31 0852 98.7 68 18 130/70 10/31 0851 98.7 68 18 130/70 10/31 0701 98.7 68 18 130/70 98 Room Air 10/30 2210 122/70 10/30 2206 98.8 67 18 122/70 94 10/30 1932 98.7 67 18 134/61 96 Room Air 10/30 1705 72 18 149/63 10/30 1705 72 18 149/63 10/30 1705 98.4 72 18 149/63 97 Room Air 10/30 1457 98.4 74 18 209/83 97 Intake & Output 10/31 1600 10/31 0800 10/31 0000 Intake Total 660 320 Output Total 200 Balance -200 660 320 Intake, IV 600 20 Intake, Oral 60 300 Number 1 Bowel Movements Output, Urine 200 Patient 120 lb 120 lb Weight Weight Bed scale Bed scale Measurement Method Physical Exam General Appearance: Alert, Oriented X3, Cooperative, No Acute Distress Skin: No Rashes Cardiovascular: Regular Rate, Normal S1, Normal S2 Lungs: Clear to Auscultation, Normal Air Movement Abdomen: Soft, No Tenderness Neurological: Normal Speech, Strength at 5/5 X4 Ext Extremities: Normal Pulses Current Medications: Current Medications Sig/Talat Start time Last Medication Dose Route Stop Time Status Admin Acetaminophen 1,000 MG Q6P PRN 10/30 221 AC N/A 1 UNIT IV Acetaminophen 650 MG Q6P PRN 10/31 1999 AC PO Atenolol 25 MG TID 10/30 2100 AC 10/31 PO 0852 Atenolol 25 MG ONCE ONE 10/30 1645 DC 10/30 PO 10/30 1646 1705 Bupropion HCl 300 MG QAM 10/31 0900 AC 10/31 PO 0852 Buspirone HCl 2.5 MG BID 10/30 2100 AC 10/31 PO 0853 Dextrose/Water 1,000 ML ONCE ONE 10/30 2300 DC 10/31 IV 10/31 1219 0045 Docusate Sodium 100 MG BID 10/30 2100 AC PO Enoxaparin Sodium 40 MG DAILY 10/31 0900 CAN SC Estradiol 0.5 MG DAILY 10/31 0900 AC 10/31 PO 0853 Fluoxetine HCl 60 MG DAILY 10/31 0900 AC 10/31 PO 0852 Heparin Sodium 5,000 UNIT Q8 10/31 0600 AC (Porcine) SC Hydromorphone HCl 1 MG Q3P PRN 10/31 1999 AC 10/31 IV 0545 Hydromorphone HCl 1 MG ONCE ONE 10/30 1545 DC 10/30 IV 10/30 1546 1540 Hydromorphone HCl 0 .STK-MED ONE 10/30 1545 DC .ROUTE Levothyroxine Sodium 0.137 MG DAILY AC 10/31 0700 AC 10/31 PO 0545 Lorazepam 0 .STK-MED ONE 10/30 1546 DC .ROUTE Lorazepam 0.5 MG ONCE ONE 10/30 1545 DC 10/30 IV 10/30 1546 1540 Losartan Potassium 50 MG DAILY 10/31 0900 AC 10/31 PO 0851 Losartan Potassium 0 .STK-MED ONE 10/30 1654 DC PO Losartan Potassium 50 MG DAILY 10/30 1632 DC 10/30 PO 1705 Omeprazole 20 MG DAILY AC 10/31 0700 AC 10/31 PO 0545 Oxycodone HCl 5 MG Q6P PRN 10/31 1999 DC PO Potassium Chloride 40 MEQ ONCE ONE 10/30 2230 DC PO 10/30 2231 Pravastatin Sodium 40 MG 1700 10/31 1700 AC PO Topiramate 50 MG BID 10/31 0900 AC 10/31 PO 0853 Topiramate 50 MG BID 10/30 2100 DC 10/30 PO 2210 Last 24 Hrs of Lab/Jacob Results Last 24 Hrs of Labs/Mics: Laboratory Tests 10/31/17 0858: Anion Gap 7, Estimated GFR > 60, BUN/Creatinine Ratio 11.4 10/30/17 1455: Lactic Acid Cancelled Microbiology 10/31 544 STOOL: Clostridium difficile Toxin A & B - RES 10/31 544 STOOL: Stool Culture - RES Assessment/Plan Assessment: Ms. ribeiro is a 72-year-old female with a past medical history of migraines, hypertension, hypothyroid, chronic pain syndrome, depression who presents with a one-month history of intractable abdominal pain described as shaking twisting coiling, associated with weakness, nonbloody diarrhea, mental fatigue, and a 40 pound weight loss 20 of which were intentional in the setting of starting Cymbalta 4 weeks ago and discontinuing it 2 weeks ago. She is admitted for intractable abdominal pain. #Abdominal pain and diarrhea #Hypokalemia secondary to diarrhea #Hypertension of her medications. Patient was given her atenolol and losartan, which improved her blood pressure #Migraine #Hypothyroidism #Chronic pain syndrome DVT prophylaxis IV access Full code Regular diet Disposition Problem List: 1. Diarrhea 2. Intractable abdominal pain Pain Ratin Pain Location: abdominal Pain Goal: Pain 7 or less Pain Plan: pathway, restart home meds Tomorrow's Labs & Rationales: FABIOLA Chichi Abernathy 10/31/17 1134: Attending MD Review Statement Attending Statement Attending MD Statement: examined this patient, discuss w/resident/PA/COMPLIANCE ENGINEER, agreed w/resident/PA/COMPLIANCE ENGINEER, discussed with family, reviewed EMR data (avail), discussed with nursing, discussed with case mgmt, reviewed images, amended to note Attending Assessment/Plan: Patient seen/examined bedside. She is admitted to inpatient medical services for intractable abdomnial pain of unknown etiology and diarrhea. She is using PPI at home for gastritis like symptoms. She has histroy of chronic pain and takes PO opiates at home, follows pain management. Resume home pain meds. CTPMP checked. Provide pain control prn with iv dilaudid only when necessary. GI consultation has been requested. ??microscopic colitis (use of PPI). Monitor abdominal exams and hemodynacmis. gi/dvt prophylaxis full code.
--- NOTE | 2017-10-31 13:29 | Cons- Gastroenterology ---
General Information and HPI Consulting Request Date of Consult: 10/31/17 Requested By: Chichi Abernathy MD Reason for Consult: 1. Abdominal Pain 2. Diarrhea Source of Information: patient Exam Limitations: no limitations History of Present Illness: Ms. brock is a 72-year-old female with a past medical history of migraines headaches, hypertension, hypothyroidism, chronic pain syndrome, fibromyalgia, chronic GI complaints likely related to irritable bowel syndrome, depression who presents with a one-month history of intractable epigastric pain and diarrhea. She has had similar episodes in the past but reports that this is the worst that she's never had. She generally takes linens S and has had chronic problems with alternating constipation and diarrhea. When she is having bad diarrhea she takes Imodium which then makes her constipated. In the past when she has had abdominal pain she has taken both Bentyl and Reglan at the same time and reports that the pain is been relieved shortly after taking these medications. However over the past month she has had no relief with this regimen which has worked for her for many years. She reports that the pain has been so severe that she has been unable to eat. Further each time she eats she has had diarrhea with extreme urgency afterwards. She had started Cymbalta 4 weeks ago but discontinued it 2 weeks ago. Per patient, these symptoms all started after visiting a new psychiatrist as her previous psychiatrist retired. Patient states that she has had a workup for this abdominal pain and diarrhea, most recently 2014. Per the medical record, patient reported that she was anxious because she had run out of her Valium and was taking only one quarter her normal dose over the past 4 weeks. Patient patient has had no nausea or vomiting. She denies melena nor bright red blood per rectum. Since she has been in the hospital she has been started on Protonix which she had also not taken for several days. She is having much less abdominal pain and her stools are more formed. She was tearful throughout much of the interview. Allergies/Medications Allergies: Coded Allergies: cephalexin (Severe, HIVES 01/03/17) codeine (Severe, HIVES 01/03/17) meperidine (Severe, SYNCOPE 01/03/17) Home Med List: Atenolol 25 MG TABLET 1 TAB PO TID BP (Reported) Bupropion HCl (Bupropion XL) 300 MG TAB.ER.24H 1 TAB PO QAM MENTAL HEALTH ( Reported) Buspirone HCl 5 MG TABLET 0.5 TAB PO BID MENTAL HEALTH (Reported) Butalb/Acetaminophen/Caffeine (Qltyzt-Rjstcyjj-Acxu 50-300-40) 50 MG-300 MG-40 MG CAPSULE 1 CAP PO TID HEADACHE (Reported) Diazepam 5 MG TABLET 1 TAB PO BIDP PRN PAIN (Reported) Docusate Sodium (Stool Softener) 100 MG CAPSULE 1 CAP PO BID STOMACH PROBLEMS (Reported) Estradiol (Estrace) 1 MG TABLET 0.5 TAB PO DAILY HRT (Reported) Fluoxetine HCl 60 MG TABLET 1 TAB PO DAILY MENTAL HEALTH (Reported) Levothyroxine Sodium 137 MCG TABLET 1 TAB PO DAILY AC THYROID (Reported) Linaclotide (Linzess) 290 MCG CAPSULE 1 CAP PO DAILY GI (Reported) Losartan Potassium 50 MG TABLET 1 TAB PO DAILY HEART (Reported) Omeprazole Magnesium (Prilosec Otc) 20 MG TABLET.DR 1 TAB PO BID GI (Reported ) Oxycodone HCl 20 MG TABLET 1 TAB PO Q6 PAIN (Reported) Oxycodone HCl (Oxycontin) 30 MG TAB.ER.12H 1 TAB PO TID PAIN (Reported) Oxycodone Myristate (Xtampza ER) 27 MG CAP.SPR.12 1 TAB PO BID PAIN (Reported ) Pantoprazole Sodium (Protonix) 40 MG TABLET.DR 1 TAB PO DAILY GI (Reported) Pravastatin Sodium (Pravachol) 40 MG TABLET 1 TAB PO DAILY CHOLESTEROL ( Reported) Topiramate (Topamax) 50 MG TABLET 1 TAB PO BID HEADACHE (Reported) Ubidecarenone (Co Q-10) 100 MG CAPSULE 1 CAP PO DAILY SUPPLEMENT (Reported) Current Medications: Current Medications Sig/Talat Start time Last Medication Dose Route Stop Time Status Admin Acetaminophen 1,000 MG Q6P PRN 10/30 2215 AC N/A 1 UNIT IV Acetaminophen 650 MG Q6P PRN 10/30 2000 AC PO Atenolol 25 MG TID 10/30 2100 AC 10/31 PO 0852 Atenolol 25 MG ONCE ONE 10/30 1645 DC 10/30 PO 10/30 1646 1705 Bupropion HCl 300 MG QAM 10/31 0900 AC 10/31 PO 0852 Buspirone HCl 2.5 MG BID 10/30 2100 AC 10/31 PO 0853 Dextrose/Water 1,000 ML ONCE ONE 10/30 2300 DC 10/31 IV 10/31 1219 0045 Docusate Sodium 100 MG BID 10/30 2100 AC PO Enoxaparin Sodium 40 MG DAILY 10/31 0900 CAN SC Estradiol 0.5 MG DAILY 10/31 0900 AC 10/31 PO 0853 Fluoxetine HCl 60 MG DAILY 10/31 0900 AC 10/31 PO 0852 Heparin Sodium 5,000 UNIT Q8 10/31 0600 AC (Porcine) SC Hydromorphone HCl 1 MG Q3P PRN 10/31 1999 AC 10/31 IV 0545 Hydromorphone HCl 1 MG ONCE ONE 10/30 1545 DC 10/30 IV 10/30 1546 1540 Hydromorphone HCl 0 .STK-MED ONE 10/30 1545 DC .ROUTE Levothyroxine Sodium 0.137 MG DAILY AC 10/31 0700 AC 10/31 PO 0545 Lorazepam 0 .STK-MED ONE 10/30 1546 DC .ROUTE Lorazepam 0.5 MG ONCE ONE 10/30 1545 DC 10/30 IV 10/30 1546 1540 Losartan Potassium 50 MG DAILY 10/31 0900 AC 10/31 PO 0851 Losartan Potassium 0 .STK-MED ONE 10/30 1654 DC PO Losartan Potassium 50 MG DAILY 10/30 1632 DC 10/30 PO 1705 Omeprazole 20 MG DAILY AC 10/31 0700 AC 10/31 PO 0545 Oxycodone HCl 5 MG Q6P PRN 10/30 2000 DC PO Potassium Chloride 40 MEQ ONCE ONE 10/30 2230 DC PO 10/30 2231 Pravastatin Sodium 40 MG 1700 10/31 1700 AC PO Topiramate 50 MG BID 10/31 0900 AC 10/31 PO 0853 Topiramate 50 MG BID 10/30 2100 DC 10/30 PO 2210 Past History Travel History Traveled to [place] past 21 day No Medical History Blood Transfusion Hx: No Neurological: NONE EENT: NONE Cardiovascular: hypertension Respiratory: NONE Gastrointestinal: DIVERTICULITIS COLON RESECTION CHOLECYSTECTOMY CHRONIC DIARRHEA Hepatic: NONE Renal: NONE Musculoskeletal: chronic back pain, CHRONIC NECK PAIN Psychiatric: depression Endocrine: hypothyroidism Blood Disorders: NONE Cancer(s): NONE 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 EENTM: Reports: no symptoms. Respiratory: Reports: no symptoms. GI: Reports: see HPI. Genitourinary: Reports: no symptoms. Skin: Reports: no symptoms. Neurological/Psychological: Reports: see HPI. Exam & Diagnostic Data Vital Signs and I&O Vital Signs Date Time Temp Pulse Resp B/P B/P Pulse O2 O2 Flow FiO2 Mean Ox Delivery Rate 10/31 0852 98.7 68 18 130/70 10/31 0851 98.7 68 18 130/70 10/31 0701 98.7 68 18 130/70 98 Room Air 10/30 2210 122/70 10/30 2206 98.8 67 18 122/70 94 10/30 1932 98.7 67 18 134/61 96 Room Air 10/30 1705 72 18 149/63 10/30 1705 72 18 149/63 10/30 1705 98.4 72 18 149/63 97 Room Air 10/30 1457 98.4 74 18 209/83 97 Intake & Output 10/31 1600 10/31 0400 10/30 1600 10/30 0400 10/29 1600 10/29 0400 Intake Total 660 320 Output Total 200 Balance 460 320 Intake, IV 600 20 Intake, Oral 60 300 Number 1 Bowel Movements Output, Urine 200 Patient 120 lb 120 lb 115 lb Weight Weight Bed scale Bed scale Reported by Patient Measurement Method Physical Exam General Appearance: well developed/nourished, no apparent distress, anxious, Tearful Head: atraumatic, normal appearance Eyes: Bilateral: normal appearance. Ears, Nose, Throat: hearing grossly normal Neck: normal inspection, supple Respiratory: normal breath sounds, no respiratory distress, quiet respiration Cardiovascular: regular rate/rhythm Gastrointestinal: normal bowel sounds, soft, non-tender, no organomegaly Back: normal inspection Extremities: normal inspection, no edema Neurologic/Psych: awake, alert, oriented x 3, anxious, tearful Cranial Nerves: Cranial Nerves II-XII Grossly Intact Skin: intact, normal color, warm/dry Results Pertinent Lab Results: Laboratory Tests 10/31 10/30 10/30 0858 1954 1455 Chemistry Sodium (137 - 145 mmol/L) 138 Potassium (3.5 - 5.1 mmol/L) 3.0 L Chloride (98 - 107 mmol/L) 104 Carbon Dioxide (22 - 30 mmol/L) 27 Anion Gap (5 - 16) 7 BUN (7 - 17 mg/dL) 8 Creatinine (0.5 - 1.0 mg/dL) 0.7 Estimated GFR (>60 ml/min) > 60 BUN/Creatinine Ratio (7 - 25 %) 11.4 Lactic Acid Cancelled Vitamin B12 (239 - 931 pg/mL) Pending Miscellaneous Ref Lab Test Result Pending Other Body Source Stl Pancreat Elastase 1 Pending 10/30 1215 Chemistry Sodium (137 - 145 mmol/L) 141 Potassium (3.5 - 5.1 mmol/L) 3.2 L Chloride (98 - 107 mmol/L) 107 Carbon Dioxide (22 - 30 mmol/L) 25 Anion Gap (5 - 16) 9 BUN (7 - 17 mg/dL) 5 L Creatinine (0.5 - 1.0 mg/dL) 0.7 Estimated GFR (>60 ml/min) > 60 BUN/Creatinine Ratio (7 - 25 %) 7.1 Glucose (65 - 99 mg/dL) 107 H Lactic Acid (0.7 - 2.1 mmol/L) 1.0 Calcium (8.4 - 10.2 mg/dL) 9.3 Total Bilirubin (0.2 - 1.3 mg/dL) 0.4 AST (14 - 36 U/L) 17 ALT (9 - 52 U/L) 24 Alkaline Phosphatase (<127 U/L) 114 Troponin I (< 0.11 ng/ml) < 0.01 Total Protein (6.3 - 8.2 g/dL) 6.6 Albumin (3.5 - 5.0 g/dL) 3.8 Globulin (1.9 - 4.2 gm/dL) 2.8 Albumin/Globulin Ratio (1.1 - 2.2 %) 1.4 Amylase (30 - 110 U/L) 39 Lipase (23 - 300 U/L) 57 Hematology CBC w Diff NO MAN DIFF REQ WBC (4.8 - 10.8 /CUMM) 5.6 RBC (4.20 - 5.40 /CUMM) 4.95 Hgb (12.0 - 16.0 G/DL) 14.4 Hct (37 - 47 %) 42.5 MCV (81.0 - 99.0 FL) 85.7 MCH (27.0 - 31.0 PG) 29.0 MCHC (33.0 - 37.0 G/DL) 33.8 RDW (11.5 - 14.5 %) 17.1 H Plt Count (130 - 400 /CUMM) 216 MPV (7.4 - 10.4 FL) 8.5 Gran % (42.2 - 75.2 %) 62.8 Lymphocytes % (20.5 - 51.1 %) 28.1 Monocytes % (1.7 - 9.3 %) 8.0 Eosinophils % (0 - 5 %) 0.6 Basophils % (0.0 - 2.0 %) 0.5 Absolute Granulocytes (1.4 - 6.5 /CUMM) 3.5 Absolute Lymphocytes (1.2 - 3.4 /CUMM) 1.6 Absolute Monocytes (0.10 - 0.60 /CUMM) 0.4 Absolute Eosinophils (0.0 - 0.7 /CUMM) 0 Absolute Basophils (0.0 - 0.2 /CUMM) 0 Assessment/Plan Assessment/Recommendations: ASSESSMENT: 1. Abdominal Pain 2. Diarrhea 3. Irritable Bowel Syndrome, Likely Mixed Picture 4. Chronic Pain Syndrome 5. Fibromyalgia 6. Anxiety Disorder RECOMMENDATIONS: 1. Stool for Fecal Fat, Pancreatic Elastase, O&P 2. B12, Folate, Carotene, Trypsinogen, Celiac Panel to rule out possible malabsorption 3. 35 minute discussion with Ms. Brock regarding IBS. I have explained to her that it is a relapsing and remitting condition that is treated symptomatically and that if one regimen does not work then there are other medications available that can be tried. I have also explained that her symptoms may have been exacerbated by Cymbalta itself as well as underlying anxiety. We have discussed that her laboratory studies and X-ray studies are normal and that she appears to be improving. All ?s answered. 4. There is no need for EGD at this time. Consult Acknowledgment - Thank you for your consult request.
[2017-10-31 13:42] VITALS: BP 100/70
[2017-10-31 20:25] VITALS: BP 180/80
[2017-10-31 21:13] VITALS: BP 148/80
[2017-11-01 06:20] VITALS: BP 198/86
[2017-11-01 12:48] LABS: ABSOLUTE BASOPHIL COUNT 0 /CUMM (0.0-0.2); ABSOLUTE EOSINOPHIL COUNT 0.2 /CUMM (0.0-0.7); ABSOLUTE GRANULOCYTE CT 4.5 /CUMM (1.4-6.5); ABSOLUTE LYMPH COUNT 1.9 /CUMM (1.2-3.4); ABSOLUTE MONOCYTE COUNT 0.6 /CUMM (0.10-0.60); BASOPHIL % 0.4 % (0.0-2.0); EOSINOPHIL % 2.4 % (0-5); GRANULOCYTE % 61.8 % (42.2-75.2); HEMATOCRIT 42.2 % (37-47); MEAN CORPUSCULAR HGB 28.8 PG (27.0-31.0); MEAN CORPUSCULAR HGB CONC 32.8 G/DL (33.0-37.0); MEAN CORPUSCULAR VOLUME 87.6 FL (81.0-99.0); MEAN PLATELET VOLUME 8.7 FL (7.4-10.4); PLATELET COUNT 187 /CUMM (130-400); RBC DISTRIBUTION WIDTH 17.2 % (11.5-14.5); RED BLOOD CELL CT 4.82 /CUMM (4.20-5.40); WHITE BLOOD CELL COUNT 7.2 /CUMM (4.8-10.8)
--- NOTE | 2017-11-01 15:11 | PN- Att Addend ---
Attending Addendum Attending Brief Note Patient seen/examined bedside. She is admitted to inpatient medical services for intractable abdomnial pain of unknown etiology and diarrhea. She is using PPI at home for gastritis like symptoms. She has histroy of chronic pain and takes PO opiates at home, follows pain management. GI recommendations thinking IBS and pyshciatry evaluation will help. Overnight she had another episodic abdominal pain. No nausea. Pysch evaluation requested. Physical Exam General Appearance: Alert, Oriented X3, Cooperative, No Acute Distress Skin: No Rashes Cardiovascular: Regular Rate, Normal S1, Normal S2 Lungs: Clear to Auscultation, Normal Air Movement Abdomen: Soft, No Tenderness Neurological: Normal Speech, Strength at 5/5 X4 Ext Extremities: Normal Pulses Resumed home pain meds. CTPMP checked. Provide pain control prn with iv dilaudid only when necessary. Monitor abdominal exams and hemodynacmis. Continue supporitve care. gi/dvt prophylaxis full code. Anticipate discharge planning soon Admission Lab Results I reviewed the following labs: Laboratory Tests 11/01 11/01 11/01 1235 1048 1000 Chemistry Sodium (137 - 145 mmol/L) Cancelled 142 Potassium (3.5 - 5.1 mmol/L) Cancelled 3.7 Chloride (98 - 107 mmol/L) Cancelled 109 H Carbon Dioxide (22 - 30 mmol/L) Cancelled 24 Anion Gap (5 - 16) Cancelled 8 BUN (7 - 17 mg/dL) Cancelled 6 L Creatinine (0.5 - 1.0 mg/dL) Cancelled 0.7 Estimated GFR (>60 ml/min) > 60 BUN/Creatinine Ratio (7 - 25 %) Cancelled 8.6 Hematology CBC w Diff NO MAN DIFF REQ WBC (4.8 - 10.8 /CUMM) 7.2 RBC (4.20 - 5.40 /CUMM) 4.82 Hgb (12.0 - 16.0 G/DL) 13.9 Hct (37 - 47 %) 42.2 MCV (81.0 - 99.0 FL) 87.6 MCH (27.0 - 31.0 PG) 28.8 MCHC (33.0 - 37.0 G/DL) 32.8 L RDW (11.5 - 14.5 %) 17.2 H Plt Count (130 - 400 /CUMM) 187 MPV (7.4 - 10.4 FL) 8.7 Gran % (42.2 - 75.2 %) 61.8 Lymphocytes % (20.5 - 51.1 %) 26.6 Monocytes % (1.7 - 9.3 %) 8.8 Eosinophils % (0 - 5 %) 2.4 Basophils % (0.0 - 2.0 %) 0.4 Absolute Granulocytes (1.4 - 6.5 /CUMM) 4.5 Absolute Lymphocytes (1.2 - 3.4 /CUMM) 1.9 Absolute Monocytes (0.10 - 0.60 /CUMM) 0.6 Absolute Eosinophils (0.0 - 0.7 /CUMM) 0.2 Absolute Basophils (0.0 - 0.2 /CUMM) 0 10/31 10/31 1847 1800 Chemistry Carotene Pending Miscellaneous Ref Lab Test Result Pending Admission Meds I reviewed the following Meds: Current Medications Sig/Talat Start time Last Medication Dose Stop Time Status Admin Atenolol 25 MG TID 10/30 2100 AC 11/01 (Tenormin) 1458 Bupropion HCl 300 MG QAM 10/31 0900 AC 11/01 (Wellbutrin XL) 0941 Buspirone HCl 2.5 MG BID 10/30 2100 AC 11/01 (Buspar) 0941 Dextrose/Sodium 1,000 ML Q13H 10/31 1915 AC 11/01 Chloride 0607 (D5W-1/2 Normal Saline 1000ML) Diazepam 5 MG BID PRN 10/31 1545 AC (Valium) Docusate Sodium 100 MG BID 10/30 2100 AC (Colace) Estradiol 0.5 MG DAILY 10/31 0900 AC 11/01 (Estrace) 0941 Fluoxetine HCl 60 MG DAILY 10/31 0900 AC 11/01 (Prozac) 0941 Heparin Sodium 5,000 UNIT Q8 10/31 0600 AC (Porcine) Hydromorphone HCl 1 MG Q3P PRN 10/31 1999 AC 11/01 (Dilaudid) 0559 Levothyroxine Sodium 0.137 MG DAILY AC 10/31 07 AC 11/01 (Synthroid) 0557 Losartan Potassium 50 MG DAILY 10/31 0900 AC 11/01 (Cozaar) 0659 Omeprazole 20 MG DAILY AC 10/31 07 AC 11/01 (Prilosec) 0557 Oxycodone HCl 20 MG Q6 10/31 1800 AC 11/01 (Roxicodone) 1223 Pravastatin Sodium 40 MG 1700 10/31 1700 AC 10/31 (Pravachol) 1817 Topiramate 50 MG BID 10/31 0900 AC 11/01 (Topamax) 0941
[2017-11-01 15:34] VITALS: BP 150/80
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
--- NOTE | 2017-11-01 17:16 | PN- Gastroenterology ---
Assessment/Plan GI Assessment/Recommendations: ASSESSMENT: 1. Upper abdominal pain 2. Diarrhea 3. Anxiety disorder 4. Irritable bowel syndrome RECOMMENDATIONS: 1. Await stool studies as well as celiac panel, trypsin, and serum IgG4 2. Discussed with Dr. Abernathy will start dicyclomine 10-20 mg by mouth 3 times a day as well as Reglan 5-10 mg by mouth 3 times a day 3. Also discussed with Dr. Abernathy would order 24-hour urine for porphyrins. Although patient does not have any skin lesions she may still have AIP. 4. Reassured patient that with conservative care and persistence she can have decreased symptoms related to her irritable bowel. 40 minutes were spent at the bedside with the patient and her . Subjective Subjective: Patient is having less diarrhea. However she reports that she is still having significant abdominal pain. She reports that she was awakened from sleep at around 5 AM with bandlike epigastric pain. Her is at the bedside. He is concerned that this may be recurrent gallstones. However Ms. Chanel reports that this pain is quite different from her gallstone pain. She reports that she is still unable to eat anything, she has severe pain after eating. She is able to tolerate cristal david. Stool studies have been ordered to rule out a malabsorptive process. She is very eager to have an EGD and reports that she had asked Dr. Miranda at to do an EGD multiple times but he was not eager to repeat one as her last one had been normal. I explained to her that given normal laboratory studies and a diagnosis of IBS with no B symptoms that there was little indication to repeat EGD which was likely to be unrevealing. She is quite concerned that Dr. Tee told her that I had asked that a psych consult be ordered. I explained to her that I had not requested a psych consult. I redirected her to what I felt was inappropriate limited workup for her diarrhea and abdominal pain. However I emphasized again that I believe she has severe irritable bowel syndrome. She had agreed that she had the symptoms for many many years and asked that Reglan and dicyclomine be started again. I discussed with her the risks of tardive dyskinesia with Reglan. 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 I've told her that generally if the patient develops to hard of dyskinesia and the Reglan has stopped that the tardive dyskinesia will resolve however in some cases it may be persistent. She endorsed her understanding of this in front of her and is asked that I start the medications. I've spoken with Dr. Abernathy who will start both dicyclomine and Reglan which have offered her relief past. Objective Vital Signs and I&Os Vital Signs Date Time Temp Pulse Resp B/P B/P Pulse O2 O2 Flow FiO2 Mean Ox Delivery Rate 11/01 1534 98.7 71 18 150/80 99 11/01 0941 74 148/78 11/01 0659 86 184/84 11/01 0620 98.4 69 20 198/86 100 Room Air 10/31 2112 98.6 70 20 148/80 97 Room Air 10/31 2024 100.1 70 20 180/80 97 Room Air 10/31 2022 70 180/80 Intake & Output 11/01 1600 11/01 0400 10/31 1600 10/31 0400 10/30 1600 10/30 0400 Intake Total 1677.5 465 660 320 Output Total 1290 200 200 Balance 387.5 265 460 320 Intake, IV 1237.5 225 600 20 Intake, Oral 440 240 60 300 Number 0 1 Bowel Movements Output, Urine 1290 200 200 Patient 120 lb 120 lb 115 lb Weight Weight Bed scale Bed scale Reported by Patient Measurement Method Physical Exam General Appearance: no apparent distress, anxious, comfortable Respiratory: normal breath sounds, lungs clear Abdomen: normal bowel sounds, soft, non-tender Neurologic/Psychiatric: awake, alert, oriented x 3 Current Medications: Current Medications Sig/Talat Start time Last Medication Dose Route Stop Time Status Admin Atenolol 25 MG TID 10/30 2099 AC 11/01 PO 1458 Bupropion HCl 300 MG QAM 10/31 09 AC 11/01 PO 0941 Buspirone HCl 2.5 MG BID 10/30 2100 AC 11/01 PO 0941 Dextrose/Sodium 1,000 ML Q13H 10/31 1915 AC 11/01 Chloride IV 0607 Diazepam 5 MG BID PRN 10/31 1545 AC PO Dicyclomine HCl 20 MG Q6 11/01 1800 AC IM Docusate Sodium 100 MG BID 10/30 2100 AC PO Estradiol 0.5 MG DAILY 10/31 09 AC 11/01 PO 0941 Fluoxetine HCl 60 MG DAILY 10/31 09 AC 11/01 PO 0941 Heparin Sodium 5,000 UNIT Q8 10/31 06 AC (Porcine) SC Hydromorphone HCl 1 MG Q3P PRN 10/31 1999 AC 11/01 IV 0559 Levothyroxine Sodium 0.137 MG DAILY AC 10/31 07 AC 11/01 PO 0557 Losartan Potassium 50 MG DAILY 10/31 09 AC 11/01 PO 0659 Metoclopramide HCl 10 MG TID 11/01 1611 DC IV Omeprazole 20 MG DAILY AC 10/31 07 AC 11/01 PO 0557 Oxycodone HCl 20 MG Q6 10/31 1800 AC 11/01 PO 1223 Pravastatin Sodium 40 MG 1700 10/31 1700 AC 10/31 PO 1817 Topiramate 50 MG BID 10/31 09 AC 11/01 PO 0941 Results Pertinent Lab Results: Laboratory Tests 11/01 11/01 11/01 1235 1048 1000 Chemistry Sodium (137 - 145 mmol/L) Cancelled 142 Potassium (3.5 - 5.1 mmol/L) Cancelled 3.7 Chloride (98 - 107 mmol/L) Cancelled 109 H Carbon Dioxide (22 - 30 mmol/L) Cancelled 24 Anion Gap (5 - 16) Cancelled 8 BUN (7 - 17 mg/dL) Cancelled 6 L Creatinine (0.5 - 1.0 mg/dL) Cancelled 0.7 Estimated GFR (>60 ml/min) > 60 BUN/Creatinine Ratio (7 - 25 %) Cancelled 8.6 Hematology CBC w Diff NO MAN DIFF REQ WBC (4.8 - 10.8 /CUMM) 7.2 RBC (4.20 - 5.40 /CUMM) 4.82 Hgb (12.0 - 16.0 G/DL) 13.9 Hct (37 - 47 %) 42.2 MCV (81.0 - 99.0 FL) 87.6 MCH (27.0 - 31.0 PG) 28.8 MCHC (33.0 - 37.0 G/DL) 32.8 L RDW (11.5 - 14.5 %) 17.2 H Plt Count (130 - 400 /CUMM) 187 MPV (7.4 - 10.4 FL) 8.7 Gran % (42.2 - 75.2 %) 61.8 Lymphocytes % (20.5 - 51.1 %) 26.6 Monocytes % (1.7 - 9.3 %) 8.8 Eosinophils % (0 - 5 %) 2.4 Basophils % (0.0 - 2.0 %) 0.4 Absolute Granulocytes (1.4 - 6.5 /CUMM) 4.5 Absolute Lymphocytes (1.2 - 3.4 /CUMM) 1.9 Absolute Monocytes (0.10 - 0.60 /CUMM) 0.6 Absolute Eosinophils (0.0 - 0.7 /CUMM) 0.2 Absolute Basophils (0.0 - 0.2 /CUMM) 0 10/31 10/31 10/31 10/30 10/30 1847 1800 0858 1954 1455 Chemistry Sodium (137 - 145 mmol/L) 138 Potassium (3.5 - 5.1 mmol/L) 3.0 L Chloride (98 - 107 mmol/L) 104 Carbon Dioxide (22 - 30 mmol/L) 27 Anion Gap (5 - 16) 7 BUN (7 - 17 mg/dL) 8 Creatinine (0.5 - 1.0 mg/dL) 0.7 Estimated GFR (>60 ml/min) > 60 BUN/Creatinine Ratio (7 - 25 %) 11.4 Lactic Acid Cancelled Carotene Pending Vitamin B12 (239 - 931 pg/mL) 753 Miscellaneous Ref Lab Test Result Pending Ref Lab Test Result Pending Other Body Source Stl Pancreat Elastase 1 Pending 10/30 1215 Chemistry Sodium (137 - 145 mmol/L) 141 Potassium (3.5 - 5.1 mmol/L) 3.2 L Chloride (98 - 107 mmol/L) 107 Carbon Dioxide (22 - 30 mmol/L) 25 Anion Gap (5 - 16) 9 BUN (7 - 17 mg/dL) 5 L Creatinine (0.5 - 1.0 mg/dL) 0.7 Estimated GFR (>60 ml/min) > 60 BUN/Creatinine Ratio (7 - 25 %) 7.1 Glucose (65 - 99 mg/dL) 107 H Lactic Acid (0.7 - 2.1 mmol/L) 1.0 Calcium (8.4 - 10.2 mg/dL) 9.3 Total Bilirubin (0.2 - 1.3 mg/dL) 0.4 AST (14 - 36 U/L) 17 ALT (9 - 52 U/L) 24 Alkaline Phosphatase (<127 U/L) 114 Troponin I (< 0.11 ng/ml) < 0.01 Total Protein (6.3 - 8.2 g/dL) 6.6 Albumin (3.5 - 5.0 g/dL) 3.8 Globulin (1.9 - 4.2 gm/dL) 2.8 Albumin/Globulin Ratio (1.1 - 2.2 %) 1.4 Amylase (30 - 110 U/L) 39 Lipase (23 - 300 U/L) 57 Hematology CBC w Diff NO MAN DIFF REQ WBC (4.8 - 10.8 /CUMM) 5.6 RBC (4.20 - 5.40 /CUMM) 4.95 Hgb (12.0 - 16.0 G/DL) 14.4 Hct (37 - 47 %) 42.5 MCV (81.0 - 99.0 FL) 85.7 MCH (27.0 - 31.0 PG) 29.0 MCHC (33.0 - 37.0 G/DL) 33.8 RDW (11.5 - 14.5 %) 17.1 H Plt Count (130 - 400 /CUMM) 216 MPV (7.4 - 10.4 FL) 8.5 Gran % (42.2 - 75.2 %) 62.8 Lymphocytes % (20.5 - 51.1 %) 28.1 Monocytes % (1.7 - 9.3 %) 8.0 Eosinophils % (0 - 5 %) 0.6 Basophils % (0.0 - 2.0 %) 0.5 Absolute Granulocytes (1.4 - 6.5 /CUMM) 3.5 Absolute Lymphocytes (1.2 - 3.4 /CUMM) 1.6 Absolute Monocytes (0.10 - 0.60 /CUMM) 0.4 Absolute Eosinophils (0.0 - 0.7 /CUMM) 0 Absolute Basophils (0.0 - 0.2 /CUMM) 0
[2017-11-01 22:24] VITALS: BP 120/70
[2017-11-02 06:20] VITALS: BP 172/80
--- NOTE | 2017-11-02 07:59 | PN- Housestaff ---
See Addendum Subjective Follow-up For: intractable abdominal pain Subjective: Patient seen and examined at bedside. Patient is angry this morning for "a man in blue" who came and told her she needed a psych consult. She was upset, and refused to go, even when the man told her that it was Dr. Hein's idea. Patient still endorsing diarrhea and pain when she eats. Otherwise no complaints. Review of Systems Constitutional: Reports: see HPI. Gastrointestinal: Reports: abdominal pain, diarrhea. Objective Last 24 Hrs of Vital Signs/I&O Vital Signs Date Time Temp Pulse Resp B/P B/P Pulse O2 O2 Flow FiO2 Mean Ox Delivery Rate 11/02 0845 66 172/80 11/02 0844 66 172/8 11/02 0620 98.5 66 18 172/80 98 Room Air 11/01 2224 98.3 72 18 120/70 97 11/01 2004 76 152/88 11/01 1534 98.7 71 18 150/80 99 Intake & Output 11/02 1600 11/02 0800 11/02 0000 Intake Total 1100 900 Output Total 400 1300 700 Balance -400 -200 200 Intake, IV 600 300 Intake, Oral 500 600 Number 1 2 2 Bowel Movements Output, Urine 400 1300 700 Physical Exam General Appearance: Alert, Oriented X3, Cooperative, Mild Distress Skin: No Rashes, No Breakdown, No Significant Lesion Skin Temp/Moisture Exam: Warm/Dry HEENT: Atraumatic, PERRLA, EOMI, Mucous Membr. moist/pink Neck: Supple, No thryomegaly Lymphatic: Axillary nl, Cervical nl Cardiovascular: Regular Rate, Normal S1, Normal S2, No Murmurs, Gallops, Rubs Abdomen: Soft, No Tenderness Neurological: Normal Speech, Strength at 5/5 X4 Ext, Normal Tone, Sensation Intact, Cranial Nerves 3-12 NL Extremities: No Clubbing, No Cyanosis, No Edema, Normal Pulses, No Tenderness/ Swelling Vascular: Normal Pulses, Pulses Symmetrical Current Medications: Current Medications Sig/Talat Start time Last Medication Dose Route Stop Time Status Admin Atenolol 25 MG TID 10/30 2099 AC 11/02 PO 0844 Bupropion HCl 300 MG QAM 10/31 0900 AC 11/02 PO 0842 Buspirone HCl 2.5 MG BID 10/30 2099 AC 11/02 PO 0845 Dextrose/Sodium 1,000 ML Q13H 10/31 1915 AC 11/02 Chloride IV 0619 Diazepam 5 MG BID PRN 10/31 1545 AC 11/02 PO 0423 Dicyclomine HCl 40 MG 4 TIMES/DAY 11/02 0957 AC 11/02 PO 1124 Dicyclomine HCl 20 MG Q6 11/01 1800 DC 11/02 IM 0618 Docusate Sodium 100 MG BID 10/30 2100 AC PO Estradiol 0.5 MG DAILY 10/31 09 AC 11/02 PO 0845 Fluoxetine HCl 60 MG DAILY 10/31 0900 AC 11/02 PO 0844 Heparin Sodium 5,000 UNIT Q8 10/31 0600 AC (Porcine) SC Hydromorphone HCl 1 MG Q3P PRN 10/30 2000 AC 11/01 IV 0559 Levothyroxine Sodium 0.137 MG DAILY AC 10/31 0700 AC 11/02 PO 0619 Losartan Potassium 50 MG DAILY 10/31 0900 AC 11/02 PO 0845 Metoclopramide HCl 10 MG TID 11/02 0959 AC 11/02 PO 1123 Metoclopramide HCl 10 MG TID 11/01 1611 DC IV Omeprazole 20 MG DAILY AC 10/31 0700 AC 11/02 PO 0619 Oxycodone HCl 20 MG Q6 10/31 1800 AC 11/02 PO 1232 Pravastatin Sodium 40 MG 1700 10/31 1700 AC 11/01 PO 1757 Topiramate 50 MG BID 10/31 0900 AC 11/02 PO 0842 Last 24 Hrs of Lab/Jacob Results Last 24 Hrs of Labs/Mics: Laboratory Tests 11/02/17 0805: Anion Gap 9, Estimated GFR > 60, BUN/Creatinine Ratio 3.3 L Assessment/Plan Assessment: Ms. Brock is a 72-year-old female with a past medical history of migraines, hypertension, hypothyroid, chronic pain syndrome, depression who presents with a one-month history of intractable abdominal pain described as shaking twisting coiling, associated with weakness, nonbloody diarrhea, mental fatigue, and a 40 pound weight loss 20 of which were intentional in the setting of starting Cymbalta 4 weeks ago and discontinuing it 2 weeks ago. She is admitted for intractable abdominal pain. #Abdominal pain and diarrhea 1. Stool for Fecal Fat, Pancreatic Elastase, O&P 2. B12, Folate, Carotene, Trypsinogen, Celiac Panel to rule out possible malabsorption 4. There is no need for EGD at this time. -Restarted Bentyl for pain/nausea #Hypokalemia secondary to diarrhea #Hypertension of her medications. Patient was given her atenolol and losartan, which improved her blood pressure #Migraine #Hypothyroidism #Chronic pain syndrome DVT prophylaxis IV access Full code Regular diet, but patient still having difficulty eating Problem List: 1. Diarrhea 2. Intractable abdominal pain Pain Ratin (worse on eating) Pain Location: abdomen Pain Goal: Pain 4 or less Pain Plan: pathway, restart home meds including bentyl Tomorrow's Labs & Rationales: bep
--- NOTE | 2017-11-02 14:22 | PN- Gastroenterology ---
Assessment/Plan GI Assessment/Recommendations: ASSESSMENT: 1. Upper abdominal pain 2. Diarrhea 3. Anxiety disorder 4. Irritable bowel syndrome RECOMMENDATIONS: 1. Await stool studies as well as celiac panel, trypsin, and serum IgG4 2. 24 hour urine for porphyrins is pending 3. Check stool electrolytes to evaluate whether diarrhea is osmotic or secretory, although diarrhea appears more osmotic than secretory 4. Start cholestyramine 4 grams BID 5. NPO after midnight for EGD in a.m. 6. Check CRP Subjective Subjective: Patient continues to complain of abdominal pain and diarrhea. Was started on Reglan and dicyclomine. Had 3 stools yesterday. Per nursing stools are formed now. Stool studies are pending. 24 hour urine for porphyrias is pending. Patient reports that she is still being awakened aty 5:00 a.m. by abdominal pain. Per nursing report patient's has been asking that patient receive narcotic analgesia which patient has said she does not need. Objective Vital Signs and I&Os Vital Signs Date Time Temp Pulse Resp B/P B/P Pulse O2 O2 Flow FiO2 Mean Ox Delivery Rate 11/02 0845 66 172/80 11/02 0844 66 172/8 11/02 0620 98.5 66 18 172/80 98 Room Air 11/01 2224 98.3 72 18 120/70 97 11/01 2004 76 152/88 11/01 1534 98.7 71 18 150/80 99 Intake & Output 11/02 1600 11/02 0400 11/01 1600 11/01 0400 10/31 1600 10/31 0400 Intake Total 9209 986 3131.5 465 660 320 Output Total 4657 360 8972 200 200 Balance -600 200 387.5 265 460 320 Intake, IV 808 798 6605.5 225 600 20 Intake, Oral 500 600 440 240 60 300 Number 3 2 0 1 Bowel Movements Output, Urine 7688 900 6325 200 200 Patient 120 lb 120 lb Weight Weight Bed scale Bed scale Measurement Method Physical Exam General Appearance: alert, anxious, comfortable Head: atraumatic, normal appearance Respiratory: lungs clear Cardiovascular: regular rate/rhythm, Normal S1, S2. Without Rub, Murmur or Gallop. Abdomen: normal bowel sounds, soft, non-tender, no organomegaly Extremities: normal inspection, no edema Neurologic/Psychiatric: awake, alert, oriented x 3 Skin: intact, normal color, warm/dry Current Medications: Current Medications Sig/Talat Start time Last Medication Dose Route Stop Time Status Admin Atenolol 25 MG TID 10/30 2099 AC 11/02 PO 0844 Bupropion HCl 300 MG QAM 10/31 0900 AC 11/02 PO 0842 Buspirone HCl 2.5 MG BID 10/30 2100 AC 11/02 PO 0845 Dextrose/Sodium 1,000 ML Q13H 10/31 1915 AC 11/02 Chloride IV 0619 Diazepam 5 MG BID PRN 10/31 1545 AC 11/02 PO 0423 Dicyclomine HCl 40 MG 4 TIMES/DAY 11/02 0957 AC 11/02 PO 1124 Dicyclomine HCl 20 MG Q6 11/01 1800 DC 11/02 IM 0618 Docusate Sodium 100 MG BID 10/30 2100 AC PO Estradiol 0.5 MG DAILY 10/31 0900 AC 11/02 PO 0845 Fluoxetine HCl 60 MG DAILY 10/31 0900 AC 11/02 PO 0844 Heparin Sodium 5,000 UNIT Q8 10/31 0600 AC (Porcine) SC Hydromorphone HCl 1 MG Q3P PRN 10/30 2000 AC 11/01 IV 0559 Levothyroxine Sodium 0.137 MG DAILY AC 10/31 0700 AC 11/02 PO 0619 Losartan Potassium 50 MG DAILY 10/31 09 AC 11/02 PO 0845 Metoclopramide HCl 10 MG TID 11/02 0959 AC 11/02 PO 1123 Metoclopramide HCl 10 MG TID 11/01 1611 DC IV Omeprazole 20 MG DAILY AC 10/31 07 AC 11/02 PO 0619 Oxycodone HCl 20 MG Q6 10/31 1800 AC 11/02 PO 1232 Pravastatin Sodium 40 MG 1700 10/31 1700 AC 11/01 PO 1757 Topiramate 50 MG BID 10/31 0900 AC 11/02 PO 0842 Results Pertinent Lab Results: Laboratory Tests 11/02 11/01 11/01 0805 1235 1048 Chemistry Sodium (137 - 145 mmol/L) 144 Cancelled Potassium (3.5 - 5.1 mmol/L) 3.0 L Cancelled Chloride (98 - 107 mmol/L) 114 H Cancelled Carbon Dioxide (22 - 30 mmol/L) 21 L Cancelled Anion Gap (5 - 16) 9 Cancelled BUN (7 - 17 mg/dL) < 2 L Cancelled Creatinine (0.5 - 1.0 mg/dL) 0.6 Cancelled Estimated GFR (>60 ml/min) > 60 BUN/Creatinine Ratio (7 - 25 %) 3.3 L Cancelled Hematology CBC w Diff NO MAN DIFF REQ WBC (4.8 - 10.8 /CUMM) 7.2 RBC (4.20 - 5.40 /CUMM) 4.82 Hgb (12.0 - 16.0 G/DL) 13.9 Hct (37 - 47 %) 42.2 MCV (81.0 - 99.0 FL) 87.6 MCH (27.0 - 31.0 PG) 28.8 MCHC (33.0 - 37.0 G/DL) 32.8 L RDW (11.5 - 14.5 %) 17.2 H Plt Count (130 - 400 /CUMM) 187 MPV (7.4 - 10.4 FL) 8.7 Gran % (42.2 - 75.2 %) 61.8 Lymphocytes % (20.5 - 51.1 %) 26.6 Monocytes % (1.7 - 9.3 %) 8.8 Eosinophils % (0 - 5 %) 2.4 Basophils % (0.0 - 2.0 %) 0.4 Absolute Granulocytes (1.4 - 6.5 /CUMM) 4.5 Absolute Lymphocytes (1.2 - 3.4 /CUMM) 1.9 Absolute Monocytes (0.10 - 0.60 /CUMM) 0.6 Absolute Eosinophils (0.0 - 0.7 /CUMM) 0.2 Absolute Basophils (0.0 - 0.2 /CUMM) 0 11/01 10/31 10/31 10/31 10/30 1000 1847 1800 0858 1954 Chemistry Sodium (137 - 145 mmol/L) 142 138 Potassium (3.5 - 5.1 mmol/L) 3.7 3.0 L Chloride (98 - 107 mmol/L) 109 H 104 Carbon Dioxide (22 - 30 mmol/L) 24 27 Anion Gap (5 - 16) 8 7 BUN (7 - 17 mg/dL) 6 L 8 Creatinine (0.5 - 1.0 mg/dL) 0.7 0.7 Estimated GFR (>60 ml/min) > 60 > 60 BUN/Creatinine Ratio (7 - 25 %) 8.6 11.4 Carotene Pending Vitamin B12 (239 - 931 pg/mL) 753 Miscellaneous Ref Lab Test Result Pending Ref Lab Test Result Pending Other Body Source Stl Pancreat Elastase 1 Pending 10/30 1455 Chemistry Lactic Acid Cancelled
[2017-11-02 15:48] VITALS: BP 140/80
[2017-11-02 16:00] VITALS: BP 140/80
[2017-11-02 22:11] VITALS: BP 142/74
[2017-11-03 06:04] VITALS: BP 146/80
--- NOTE | 2017-11-03 07:22 | PN- Housestaff ---
See Addendum Subjective Follow-up For: intractable abdominal pain Subjective: Patient seen and examined at bedside. Patient states that she has had 2 episodes of loose stools overnight, although they are more formed than upon admission. Patient also states that her abdominal pain is improved, currently is a 4 out of 10 which is much better than admission when it was a 12 out of 10. Patient states that she restarted Bentyl and metoclopramide, which helps her on this admission, however she was taking it prior to admission and says that that was approximate reason she came in as they no longer helped her with her abdominal pain. Patient is currently n.p.o. for an EGD today. Denies fevers/ chills/night sweats/chest pain/urinary symptoms/lower extremity edema Review of Systems Constitutional: Reports: see HPI. Objective Last 24 Hrs of Vital Signs/I&O Vital Signs Date Time Temp Pulse Resp B/P B/P Pulse O2 O2 Flow FiO2 Mean Ox Delivery Rate 11/03 0604 98.1 77 18 146/80 98 Room Air 11/02 2211 98.4 73 18 142/74 99 Room Air 11/02 2019 98.0 70 140/80 11/02 1600 98.0 70 18 140/80 98 Room Air 11/02 1548 98.0 70 18 140/80 98 11/02 1443 70 140/80 11/02 0845 66 172/80 11/02 0844 66 172/8 Intake & Output 11/03 1600 11/03 0800 11/03 0000 Intake Total 600 400 Output Total 400 600 Balance 200 -200 Intake, IV 600 300 Intake, Oral 0 100 Number 0 Bowel Movements Output, Urine 400 600 Physical Exam General Appearance: Alert, Oriented X3, Cooperative, No Acute Distress Skin: No Rashes Cardiovascular: Regular Rate, Normal S1, Normal S2 Lungs: Clear to Auscultation, Normal Air Movement Abdomen: Soft, No Tenderness Neurological: Normal Speech, Sensation Intact Extremities: No Edema Current Medications: Current Medications Sig/Talat Start time Last Medication Dose Route Stop Time Status Admin Atenolol 25 MG TID 10/30 2099 AC 11/02 PO 2019 Bupropion HCl 300 MG QAM 10/31 0900 AC 11/02 PO 0842 Buspirone HCl 2.5 MG BID 10/30 2099 AC 11/02 PO 2019 Cholestyramine Resin 1 PAC BID 11/02 2099 AC 11/02 PO 2019 Dextrose/Sodium 1,000 ML Q13H 10/31 1915 AC 11/02 Chloride IV 2021 Diazepam 5 MG BID PRN 10/31 1545 AC 11/03 PO 0019 Dicyclomine HCl 40 MG 4 TIMES/DAY 11/02 0957 AC 11/02 PO 2019 Dicyclomine HCl 20 MG Q6 11/01 1800 DC 11/02 IM 0618 Docusate Sodium 100 MG BID 10/30 2100 AC PO Estradiol 0.5 MG DAILY 10/31 0900 AC 11/02 PO 0845 Fluoxetine HCl 60 MG DAILY 10/31 0900 AC 11/02 PO 0844 Heparin Sodium 5,000 UNIT Q8 10/31 0600 AC (Porcine) SC Hydromorphone HCl 1 MG Q3P PRN 10/30 2000 AC 11/01 IV 0559 Levothyroxine Sodium 0.137 MG DAILY AC 10/31 0700 AC 11/03 PO 0532 Losartan Potassium 50 MG DAILY 10/31 0900 AC 11/02 PO 0845 Metoclopramide HCl 10 MG TID 11/02 0959 AC 11/02 PO 2019 Omeprazole 20 MG DAILY AC 10/31 0700 AC 11/03 PO 0532 Oxycodone HCl 20 MG Q6 10/31 1800 AC 11/03 PO 0531 Potassium Chloride 40 MEQ ONCE ONE 11/03 0745 DC PO 11/03 0746 Pravastatin Sodium 40 MG 1700 10/31 1700 AC 11/02 PO 1727 Topiramate 50 MG BID 10/31 0900 AC 11/02 PO 2019 Last 24 Hrs of Lab/Jacob Results Last 24 Hrs of Labs/Mics: Laboratory Tests 11/02/17 0805: Anion Gap 9, Estimated GFR > 60, BUN/Creatinine Ratio 3.3 L, Serum Osmolality 290, C-Reactive Prot, Quant < 0.5 Assessment/Plan Assessment: Ms. Brock is a 72-year-old female with a past medical history of migraines, hypertension, hypothyroid, chronic pain syndrome, depression who presents with a one-month history of intractable abdominal pain described as shaking twisting coiling, associated with weakness, nonbloody diarrhea, mental fatigue, and a 40 pound weight loss 20 of which were intentional in the setting of starting Cymbalta 4 weeks ago and discontinuing it 2 weeks ago. She is admitted for intractable abdominal pain. #Abdominal pain and diarrhea - resolving 1. Stool for Fecal Fat, Pancreatic Elastase, O&P pending 2. B12 753 WNL, Folate, Carotene, Trypsinogen, Celiac Panel pending to rule out possible malabsorption 3. Will go for EGD today 4. CRP negative -Restarted Bentyl Reglan for pain/nausea #Hypokalemia secondary to diarrhea -BEP daily to monitor #Hypertension of her medications. Patient was given her atenolol and losartan, which improved her blood pressure #Migraine #Hypothyroidism #Chronic pain syndrome DVT prophylaxis IV access Full code NPO for EGD today Problem List: 1. Diarrhea 2. Intractable abdominal pain Pain Ratin Pain Location: abdomen Pain Goal: Pain 4 or less Pain Plan: pathway, home meds Tomorrow's Labs & Rationales: BEP
--- NOTE | 2017-11-03 12:02 | Proc Note Endoscopy ---
Endoscopy Procedure Medical History: unchanged Mental Status: alert/oriented Heart/Lung Eval Prior to Sedation: within normal limits Candidate for Sedation? Yes Procedure Date: 11/03/17 Procedure Type: EGD w/biopsy Stock Mover: MD Hein Deborah E. ASA Classification: III Indications: 1. Epigastric Pain 2. Diarrhea 3. Weight Loss, Unintentional Instrument: diagnostic gastroscope Meds Received: MAC Patient's Tolerance: good Complications: none Extent Reached: second part of duodenum Procedure: Note: Informed consent was obtained prior to procedure. Risks and benefits of procedure were discussed with patient. Potential complications discussed included perforation, bleeding, abdominal pain, and adverse reaction to medications. It was explained that iany or all of these complications could result in the need for extended hospitalization, emergency surgery, transfusion of packed red blood cells (with the risk of HIV or hepatitis virus), intubation with mechanical ventilation, and possible need for antibiotics. It was further explained that an existing tumor polyp or mucosal abnormality might not be identified at the time of the procedure thus resulting in a missed opportunity for early diagnosis and treatment of a gastrointestinal malignancy or disease with possible interval development of a gastrointestinal cancer or other disease with possible worsening of clinical condition in the interval between endoscopies. It was also discussed that complications are not limited to those listed above. Possible alternatives to endoscopic treatment or evaluation were discussed. All questions were answered. Continuous EKG and blood pressure monitors were attached. Supplemental oxygen was provided with O2 Sat monitoring. Patient was placed in the left lateral decubitus position. A surgical timeout was performed. All persons in the room were identified. All concerns were expressed and answered. A bite block was placed in the mouth and sedation was administered by anesthesia and titrated to comfort prior to starting the procedure. The Olympus upper endoscope was advanced under direct vision to the level of the third portion of the duodenum. Esophagus: The esophagus had a normal mucosal vascular pattern throughout its entirety. The GE junction was identified and was normal. There was tenacious white material in a circumferential manner in the midesophagus suggestive of Khadra esophagitis. Brushing was obtained from this area. The Z line was located at 35 cm from the incisors and was nondisplaced. Biopsies were obtained from the lower third of the esophagus to rule out underlying inflammatory changes. Stomach: The stomach had a normal mucosal and vascular pattern throughout the proximal body and fundus. Within the antrum there was linear erythema in the spoken wheel fashion. There were no ulcers or masses noted.. Retroflexed view of the cardiofundic region revealed a normal mucosal and vascular pattern. There were normal rugae and normal distensibility. The pylorus was patent and easily intubated. The pylorus is in the fixed and open position with mild distortion of the gastric antrum. Biopsies were obtained from the antrum, angularis, gastric body and lesser curvature to rule out H. Pylori. Duodenum: The duodenum was fully examined from bulb down to the third portion. There was a normal mucosal vascular pattern throughout. There was mild nonspecific scalloping of folds. Given patient's history of diarrhea, Biopsies were obtained from D1, D2 and the duodenal bulb to rule out celiac disease. Over 6 separate bites were obtained. With the endoscope in the forward-viewing position, it was slowly withdrawn and all areas were re-inspected and findings are as described previously. Patient tolerated the procedure well. EBL: Minimal Specimens Removed: 1. D1, D2 and the duodenal bulb to rule out celiac disease. 2. antrum, angularis, gastric body and lesser curvature to rule out H. Pylori. 3. lower third of the esophagus to rule out underlying inflammatory changes. 4. Brushing from the midesophagus to rule out Khadra Findings: 1. Probable khadra esophagitis 2. Mild erythema gastric antrum 3. Mild, nonspecific scalloping of duodenal folds 4. Pylorus in Fixed and Open Position, suggestive of Chronic Acid-Peptic Disease Impression: 1. Probable khadra esophagitis 2. Mild erythema gastric antrum 3. Mild, nonspecific scalloping of duodenal folds 4. Pylorus in Fixed and Open Position, suggestive of Chronic Acid-Peptic Disease Recommendations: 1. Start Diflucan 200 mg by mouth on day 1 then 100 mg daily thereafter to complete a 14 day course 2. Await pathology 3. Check stool studies. 4. Suspect much of patient's epigastric/subxiphoid pain may be related to Khadra. We'll monitor clinical condition.
[2017-11-03] MEDS ORDERED: DIFLUCAN100 M1 PO (12:40)
--- NOTE | 2017-11-03 12:42 | Incdntl Nt Psy ---
Incidental Note Notation: Asked to see [pt to rule out underlying psychiatric illness. Pt has gone for OGD. Will see tomorrow.
--- NOTE | 2017-11-03 12:42 | Patient Discharge Instructions ---
Discharge Instructions General Discharge Information Special Instructions: - Please follow up with your GI specialist Dr. Hein for your pathology report from endoscopy immediately after discharge for a follow up colonoscopy. - Please continue taking Diflucan 100mg tablet once daily for 12 more days. -Please discuss with your pcp regarding your psychiatric medications. - Please follow up with your primary care physician within 1-2 weeks of discharge. Inform your primary care physician of this admission to . - Continue your current medications per discharge instructions. - Please watch for these problems: Fever, Chills, Nausea, Vomiting, Shortness of Breath, Productive Cough, Chest Pain/Discomfort, Abdominal Pain, Active Bleeding or Bloody urine/stool. Diet Continue normal diet: Yes Activity Full Activity/No Limits: Yes Acute Coronary Syndrome Inclusion Criteria At [place] or during hospital stay patient has or had the following: ACS DIAGNOSIS No Discharge Core Measures Meds if any: Prescribed or Continued at Discharge Meds if any: NOT Prescribed or Continued at Discharge Congestive Heart Failure Inclusion Criteria At [place] or during hospital stay patient has or had the following: CHF DIAGNOSIS No Discharge Core Measures Meds if any: Prescribed or Continued at Discharge Meds if any: NOT Prescribed or Continued at Discharge Cerebrovascular accident Inclusion Criteria At [place] or during hospital stay patient has or had the following: CVA/TIA Diagnosis No Discharge Core Measures Meds if any: Prescribed or Continued at Discharge Meds if any: NOT Prescribed or Continued at Discharge Venous thromboembolism Inclusion Criteria VTE Diagnosis No VTE Type NONE VTE Confirmed by (Test) NONE Discharge Core Measures - Per Current guidelines, there needs to be overlap - treatment for the first 5 days of Warfarin therapy. - If discharged on Warfarin prior to 5 days of - overlap therapy, the patient will need to be - assessed for post discharge needs including - *Post discharge parental anticoagulation - *Warfarin and/or parental anticoagulation education - *Follow up date to check INR post discharge At least 5 days overlap therapy as Inpatient No Meds if any: Prescribed or Continued at Discharge Note: Overlap Therapy is Warfarin and Anticoagulant Meds if any: NOT Prescribed or Continued at Discharge
[2017-11-03 12:56] VITALS: BP 150/80
--- NOTE | 2017-11-03 14:04 | Discharge Summary ---
Visit Information Visit Dates Admission Date: 10/30/17 Discharge Date: 11/05/17 Hospital Course Course Attending Physician: Chichi Abernathy MD Primary Care Physician: Sung Russ MD Hospital Course: Ms. riberio is a 72-year-old female with a past medical history of migraines, hypertension, hypothyroid, chronic pain syndrome, depression who presents with a one-month history of intractable abdominal pain described as shaking twisting coiling, associated with weakness, nonbloody diarrhea, mental fatigue, and a 40 pound weight loss 20 of which were intentional in the setting of starting Cymbalta 4 weeks ago and discontinuing it 2 weeks ago. Patient states that she decided to come in today because the pain continually gets worse and the diarrhea is worse. Patient also states that she has poor p.o. intake, and is only drinking cristal david for the past week. Per patient, these symptoms all started after visiting a new psychiatrist as her previous psychiatrist retired. Patient states that "that devil" started her on Cymbalta, and decreased her Prozac from 80 mg to 60 mg. Patient states that after starting the Cymbalta, she became mentally foggy, aggressive in language, and she began having severe debilitating abdominal pain along with diarrhea. Patient states that she took the medication for 2 weeks, and then discontinued it due to the symptoms. Patient states that the mental fog did improve, however her diarrhea and her abdominal pain continued to get worse. Patient states that she has had previous workups in the past, most recently 2014, for the same abdominal pain, but the Cymbalta seems to have triggered it mostly so. Patient also states that she is incredibly anxious, having run out of her Valium prescription and having to halve and quarter her tablets over the past 4 weeks. Patient does deny vomiting , and admits that initially she tried to lose 20 pounds, but does say that the other 20 pounds were unintentional. Patient states that everything she is taken has not improved the pain, and eating exacerbates the pain. Patient states that the pain is nonradiating, but does feel like it twists her stomach into knots. Patient states pain is constant, unrelenting, unremitting. Patient expresses extreme anxiety about Cymbalta. Patient also was hypertensive, but states that she did not take any of her medications today. On admission, Vitals: Stable afebrile, BP 218/91 -> 149/63, 97% RA Physical exam as above -CBC: unremarkable -BMP: Hypokalemia 3.2, otherwise unremarkable -CXR: No Acute -Ab CT: No CT evidence of any acute intra-abdominal and/or intrapelvic pathology present. Specifically, previously identified abnormal morphologic appearance of the distal small bowel within the right lower quadrant is no longer reproduced. Currently no CT evidence of any bowel obstruction or perforation or discrete intra-abdominal and/or intrapelvic mass present. -EKG: NSR w/o significant ST-T abnormalities. -Last Echo: None in our system -Interventions in ER: Dilaudid 1mg x 2, Ativan 0.5 x 1, Losartan + Atenolol x 1 She was admitted to general medicine floors and was monitored for abdominal pain and loose stools. CT A/P was negative for GI pathology. GI was consulted, who recommended Stool for Fecal Fat, Pancreatic Elastase, B12 , Folate, Carotene, Trypsinogen, Celiac Panel pending to rule out possible malabsorption. Lactic acid was negative, Ova and parasites were negative. She was presumed to have irritable bowel syndrome. However, given intractable pain and refusal to tolerate PO solids, she went down for EGD, which showed paxton esophagitis confirmed on AICHA prep and was thus started on Diflucan. She also underwent colonoscopy which she will f/u outpt with Dr Hein for results. She initially was unable to tolerate PO solids, was only drinking cristal david, but restarted Bentyl and Reglan, was treated for paxton esophagitis and was able to tolerate solids prior to discharge. She was without leukocytosis or fevers on admission. She was vitally stable throughout admission. Psychiatry was consulted as patient was thought to have some psychiatric component of illness and recent issues with cymbalta, who recommended followup outpatient but patient declined. She tolerated full liquid diet, and thus was safe to discharge home with close outpt followup. She was given strict return precautions, verablized understanding of care and management plan, and was discharged to home. Her hospital course was without incident. Allergies: Coded Allergies: cephalexin (Severe, HIVES 01/03/17) codeine (Severe, HIVES 01/03/17) meperidine (Severe, SYNCOPE 09/29/17) Significant Procedures: OCTOBER 30 EXAMINATION: CT ABDOMEN AND PELVIS WITH CONTRAST CLINICAL INFORMATION: 72-year-old female with abdominal pain. Palpable mass lower abdomen. Weight loss. Diarrhea. COMPARISON: CT of the abdomen and pelvis done on 01/03/2017. TECHNIQUE: Multidetector volumetric imaging was performed of the abdomen and pelvis following IV administration of 95 mL of Optiray 320 intravenous contrast. Sagittal and coronal reformatted images were obtained on the technologist's workstation. DLP: 252.6 mGy-cm FINDINGS: LUNG BASES: Nonspecific pleural-based triangular airspace opacity is noted at right lung base, unchanged. The remainder of the lung perez are clear. LIVER, GALLBLADDER, AND BILIARY TREE: Subtle sub-5 mm hypodensity is noted within segment 6/7 of right lobe of the liver (image [id number] series 3), appears unchanged. The remainder of the liver appears unremarkable. The portal, hepatic veins are patent. The gallbladder is surgically absent. There is no intrahepatic biliary ductal dilatation present. The extrahepatic biliary duct is mildly dilated, unchanged. PANCREAS: Mostly atrophied, unchanged. SPLEEN: Unremarkable. ADRENAL GLANDS: No discrete mass present. KIDNEYS AND URETERS: Large exophytic cortical renal cyst is noted at the inferior pole of the left kidney, measures approximately 6 cm, unchanged. Otherwise both kidneys are unremarkable, unchanged. BLADDER: Unremarkable. GASTROINTESTINAL TRACT: Postsurgical changes are noted at the sigmoid colon, unchanged. The remainder of the visualized large bowel is unremarkable. The stomach is suboptimally distended. The small bowel loops are decompressed. The previously seen mild small bowel wall thickening, hyperemia is no longer visualized. The appendix is visualized at right iliac fossa, unchanged. Specifically no abnormal bowel dilatation, air-fluid level suggestive of obstruction present. ABDOMINAL WALL: Fat-containing small ventral hernia is noted slightly to the right of the midline just above the level of the symphysis pubis (see the pollard images), unchanged. LYMPH NODES: There are no pathologically enlarged retroperitoneal, mesenteric, pelvic and/or inguinal, groin lymphadenopathy present. VASCULAR: Mild diffuse atherosclerotic disease is noted within the aorta and its branches without aneurysm formation. PELVIC VISCERA: There is no pelvic mass present. There is no free fluid and/or free air present. OSSEOUS STRUCTURES: Intervertebral fusion is noted at L3-L4 with superimposed multilevel degenerative spondylosis. No significant change. IMPRESSION: No CT evidence of any acute intra-abdominal and/or intrapelvic pathology present. Specifically, previously identified abnormal morphologic appearance of the distal small bowel within the right lower quadrant is no longer reproduced. Currently no CT evidence of any bowel obstruction or perforation or discrete intra-abdominal and/or intrapelvic mass present. Procedure Date: 11/03/17 Procedure Type: EGD w/biopsy Rectifying Operator: MD Hein Deborah E. ASA Classification: III Indications: 1. Epigastric Pain 2. Diarrhea 3. Weight Loss, Unintentional Instrument: diagnostic gastroscope Meds Received: MAC Patient's Tolerance: good Complications: none Extent Reached: second part of duodenum Procedure: Note: Informed consent was obtained prior to procedure. Risks and benefits of procedure were discussed with patient. Potential complications discussed included perforation, bleeding, abdominal pain, and adverse reaction to medications. It was explained that iany or all of these complications could result in the need for extended hospitalization, emergency surgery, transfusion of packed red blood cells (with the risk of HIV or hepatitis virus), intubation with mechanical ventilation, and possible need for antibiotics. It was further explained that an existing tumor polyp or mucosal abnormality might not be identified at the time of the procedure thus resulting in a missed opportunity for early diagnosis and treatment of a gastrointestinal malignancy or disease with possible interval development of a gastrointestinal cancer or other disease with possible worsening of clinical condition in the interval between endoscopies. It was also discussed that complications are not limited to those listed above. Possible alternatives to endoscopic treatment or evaluation were discussed. All questions were answered. Continuous EKG and blood pressure monitors were attached. Supplemental oxygen was provided with O2 Sat monitoring. Patient was placed in the left lateral decubitus position. A surgical timeout was performed. All persons in the room were identified. All concerns were expressed and answered. A bite block was placed in the mouth and sedation was administered by anesthesia and titrated to comfort prior to starting the procedure. The Olympus upper endoscope was advanced under direct vision to the level of the third portion of the duodenum. Esophagus: The esophagus had a normal mucosal vascular pattern throughout its entirety. The GE junction was identified and was normal. There was tenacious white material in a circumferential manner in the midesophagus suggestive of Paxton esophagitis. Brushing was obtained from this area. The Z line was located at 35 cm from the incisors and was nondisplaced. Biopsies were obtained from the lower third of the esophagus to rule out underlying inflammatory changes. Stomach: The stomach had a normal mucosal and vascular pattern throughout the proximal body and fundus. Within the antrum there was linear erythema in the spoken wheel fashion. There were no ulcers or masses noted.. Retroflexed view of the cardiofundic region revealed a normal mucosal and vascular pattern. There were normal rugae and normal distensibility. The pylorus was patent and easily intubated. The pylorus is in the fixed and open position with mild distortion of the gastric antrum. Biopsies were obtained from the antrum, angularis, gastric body and lesser curvature to rule out H. Pylori. Duodenum: The duodenum was fully examined from bulb down to the third portion. There was a normal mucosal vascular pattern throughout. There was mild nonspecific scalloping of folds. Given patient's history of diarrhea, Biopsies were obtained from D1, D2 and the duodenal bulb to rule out celiac disease. Over 6 separate bites were obtained. With the endoscope in the forward-viewing position, it was slowly withdrawn and all areas were re-inspected and findings are as described previously. Patient tolerated the procedure well. EBL: Minimal Specimens Removed: 1. D1, D2 and the duodenal bulb to rule out celiac disease. 2. antrum, angularis, gastric body and lesser curvature to rule out H. Pylori. 3. lower third of the esophagus to rule out underlying inflammatory changes. 4. Brushing from the midesophagus to rule out Paxton Findings: 1. Probable paxton esophagitis 2. Mild erythema gastric antrum 3. Mild, nonspecific scalloping of duodenal folds 4. Pylorus in Fixed and Open Position, suggestive of Chronic Acid-Peptic Disease Impression: 1. Probable paxton esophagitis 2. Mild erythema gastric antrum 3. Mild, nonspecific scalloping of duodenal folds 4. Pylorus in Fixed and Open Position, suggestive of Chronic Acid-Peptic Disease Recommendations: 1. Start Diflucan 200 mg by mouth on day 1 then 100 mg daily thereafter to complete a 14 day course 2. Await pathology 3. Check stool studies. 4. Suspect much of patient's epigastric/subxiphoid pain may be related to Paxton. We'll monitor clinical condition. Pertinent Lab Results: 10/30 Fecal fat normal; Stool pancreatic elastase 158 L (NL >200 mcg/g); 10/31 C.Diff toxin neg; Stool culture neg 11/01 Urine studies 24hr sodium 184.9 WNL 11/03 > AICHA of esophagus Final 11/03/-1201 MODERATE Fungal elements found consistent with YEAST Disposition Summary Disposition Principal Diagnosis: #Irritable Bowel Syndrome #Abdominal Pain/Diarrhea #Paxton Esophagitis #Hypokalemia #Essential HTN #Migraines #Hypothyroidism #Chronic Pain syndrome Additional Diagnosis: as above Discharge Disposition: home or self care Discharge Instructions General Discharge Information Code Status: Full Code Patient's Diet: as tolerated Patient's Activity: as tolerated Follow-Up Instructions/Appts: - Please follow up with your derrick operator Dr Hein/Dr Langston within 1- 2 weeks of discharge. - Please follow up with your primary care physician within 1-2 weeks of discharge. Inform your primary care physician of this admission to [facility]. - Continue your current medications per discharge instructions. - Please watch for these problems: Fever, Chills, Nausea, Vomiting, Shortness of Breath, Productive Cough, Chest Pain/Discomfort, Abdominal Pain, Active Bleeding or Bloody urine/stool. Medications at Discharge Discharge Medications: Stop taking the following medications: Omeprazole Magnesium (Prilosec Otc) 20 MG TABLET.DR ORAL TWICE DAILY Oxycodone HCl (Oxycontin) 30 MG TAB.ER.12H ORAL THREE TIMES DAILY Oxycodone Myristate (Xtampza ER) 27 MG CAP.SPR.12 ORAL TWICE DAILY Qty = 60 Continue taking these medications: Atenolol (Atenolol) 25 MG TABLET 1 Tablet ORAL THREE TIMES DAILY Comments: Last Taken: 11/05/17 Time: 2:43 PM Estradiol (Estrace) 1 MG TABLET 0.5 Tablet ORAL DAILY Comments: Last Taken: 11/05/17 Time: 8:50 AM Levothyroxine Sodium (Levothyroxine Sodium) 137 MCG TABLET 1 Tablet ORAL DAILY BEFORE BREAKFAST Comments: Last Taken: 11/05/17 Time: 5:00 AM Pravastatin Sodium (Pravachol) 40 MG TABLET 1 Tablet ORAL DAILY Comments: Last Taken: 11/05/17 Time: 4:00 PM Fluoxetine HCl (Fluoxetine HCl) 60 MG TABLET 1 Tablet ORAL DAILY Comments: Last Taken: 11/05/17 Time: 8:50 AM Bupropion HCl (Bupropion XL) 300 MG TAB.ER.24H 1 Tablet ORAL Every Morning Comments: Last Taken: 11/04/17 Time: 9:00 AM Oxycodone HCl (Oxycodone HCl) 20 MG TABLET 1 Tablet ORAL EVERY SIX HOURS Comments: Last Taken: 11/05/17 Time: 5:20 PM Topiramate (Topamax) 50 MG TABLET 1 Tablet ORAL TWICE DAILY Comments: Last Taken: 11/05/17 Time: 8:50 AM Butalb/Acetaminophen/Caffeine (Sgxdih-Vgamajlj-Ohja 50-300-40) 50 MG-300 MG-40 MG CAPSULE 1 Capsule ORAL THREE TIMES DAILY Qty = 90 Comments: NOT GIVEN IN HOSPITAL Buspirone HCl (Buspirone HCl) 5 MG TABLET 0.5 Tablet ORAL TWICE DAILY Qty = 28 Docusate Sodium (Stool Softener) 100 MG CAPSULE 1 Capsule ORAL TWICE DAILY Comments: NOT GIVEN Ubidecarenone (Co Q-10) 100 MG CAPSULE 1 Capsule ORAL DAILY Comments: NOT GIVEN IN HOSPITAL Pantoprazole Sodium (Protonix) 40 MG TABLET.DR 1 Tablet ORAL DAILY Comments: GIVEN PRILOSEC Linaclotide (Linzess) 290 MCG CAPSULE 1 Capsule ORAL DAILY Comments: NOT GIVEN IN HOSPITAL Losartan Potassium (Losartan Potassium) 50 MG TABLET 1 Tablet ORAL DAILY Qty = 30 Comments: Last Taken: 11/05/17 Time: 8:50 AM Diazepam (Diazepam) 5 MG TABLET 1 Tablet ORAL 2 x Daily as needed as needed for PAIN Comments: Last Taken: 11/05/17 Time: 8:50 AM Start taking the following new medications: Fluconazole (Diflucan) 100 MG TABLET 100 Milligram ORAL DAILY Qty = 10 No Refills Comments: Last Taken: 11/05/17 Time: 8:45 AM Metoclopramide HCl (Reglan) 10 MG TABLET 1 Tablet ORAL THREE TIMES DAILY Qty = 90 No Refills Instructions: 30 minutes before meals Copies To: Jeb CABALLERO,Sung Wagoner
[2017-11-03 14:15] VITALS: BP 150/80
[2017-11-03 21:58] VITALS: BP 140/84
[2017-11-04 06:20] VITALS: BP 132/80
--- NOTE | 2017-11-04 10:41 | Cons- Psychiatry ---
Psychiatric Consult Date of Consult: 11/03/17 Reason for Consult: Asked to assess this patient for underlying psychiatric illness History of Present Illness: This 72-year-old female was admitted on October 20 with a complaint of intractable abdominal pain and diarrhea. She has had multiple investigations including OGD and the likely cause is thought to be esophageal candidiasis. The patient is also being prepped for colonoscopy today. The patient states her symptoms from roughly 4 weeks prior to presentation. She reports that she has been maintained on fluoxetine and bupropion for 4 years. Her psychiatrist retired and she found a new psychiatrist. She says she did not present with any symptoms of depression or anxiety. Her new psychiatrist added Cymbalta to her medication. The patient reported that since then she developed increasing abdominal pain and diarrhea. She stopped Cymbalta 2 weeks later. She reports that by the time she came to the emergency room she was unable to eat and had only been drinking cristal david for several days. The patient denies any abnormalities of mood prior to presentation. At present she says her mood is fair and that she is tolerating her hospitalization. Her sleep has been disrupted by her symptoms but last night she slept well. She has been n.p.o. Concentration is good. She is not suicidal or homicidal. There are no psychotic symptoms. Past psychiatric history: The patient has been on fluoxetine and bupropion for 4 years. She has no history of suicide attempts. She denies substance abuse. Allergies: Coded Allergies: cephalexin (Severe, HIVES 01/03/17) codeine (Severe, HIVES 01/03/17) meperidine (Severe, SYNCOPE 01/03/17) Current Medications: Med Atenolol 25 MG PO TID 10/30/17 2100 Bupropion HCl 300 MG PO QAM 10/31/17 0900 Buspirone HCl 2.5 MG PO BID 10/30/17 2100 Cholestyramine Resin 1 PAC PO BID 11/02/17 2100 Dextrose/Sodium Chloride 1,000 ML IV Q13H 10/31/17 1915 Diazepam 5 MG PO BID PRN 10/31/17 1545 Dicyclomine HCl 40 MG PO 4 TIMES/DAY 11/02/17 0957 Estradiol 0.5 MG PO DAILY 10/31/17 0900 Fluconazole 100 MG PO DAILY 11/04/17 0900 Fluoxetine HCl 60 MG PO DAILY 10/31/17 0900 Heparin Sodium (Porcine) 5,000 UNIT SC Q8 10/31/17 0600 Levothyroxine Sodium 0.137 MG PO DAILY AC 10/31/17 07 Losartan Potassium 50 MG PO DAILY 10/31/17 09 Metoclopramide HCl 10 MG PO TID 11/02/17 0959 Omeprazole 20 MG PO DAILY AC 10/31/17 07 Pravastatin Sodium 40 MG PO 1700 10/31/17 1700 Sodium Phosphate 1 UNIT MI ONCE PRN 11/03/17 2355 Topiramate 50 MG PO BID 10/31/17 09 Past History Past Medical History Neurological: NONE EENT: NONE Cardiovascular: hypertension Respiratory: NONE Gastrointestinal: DIVERTICULITIS COLON RESECTION CHOLECYSTECTOMY CHRONIC DIARRHEA Hepatic: NONE Renal: NONE Musculoskeletal: chronic back pain, CHRONIC NECK PAIN Psychiatric: depression Endocrine: hypothyroidism Blood Disorders: NONE Cancer(s): NONE 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 Eye contact was good. Speech was normal in rate, rhythm, volume and tone. She described her mood as "getting through", her affect was euthymic with normal range. She was not suicidal or homicidal. Thought process was normal in tempo, stream and form with no delusions or obsessions. Attention and concentration were good. There was no evidence of perceptual abnormality. Impulse control is good. Recent and remote memory are intact. Intelligence level is average, fund of knowledge average, use of language appropriate. The patient's insight is good, judgment unimpaired. Impression: The patient is no acute psychiatric illness at this time. It is difficult to say whether an increase in serotonin levels precipitated by the addition of Cymbalta exacerbated her symptoms are was merely coincidental. The patient is on high dose of fluoxetine however as well as buspirone. The patient does not currently have an outpatient psychiatrist. I offered her a connection with outpatient psychiatry at [facility] but she declined, opting instead to have her primary care doctor following her psychiatric medication. She is aware that she may contact outpatient services here if she needs psychiatric help. Provisional Treatment Plan: 1. Suggest discontinuing buspirone as dose is subtherapeutic and his increasing serotonin levels 2. The patient is at a high dose of fluoxetine. I would suggest reducing this if the patient is agreeable. I would reduce it to 40 mg daily. Psychiatry will sign off for now. Thank you for consulting us on this patient.
[2017-11-04] MEDS ORDERED: DIFLUCAN100 M1 PO (13:54)
[2017-11-04 14:06] VITALS: BP 140/80
--- NOTE | 2017-11-04 14:30 | PN- Att Addend ---
Attending Addendum Attending Brief Note S: The patient is subjectively feeling better- tolerated bowel prep for colonoscopy well. O: VS: Vital Signs Date Time Temp Pulse Resp B/P B/P Pulse O2 O2 Flow FiO2 Mean Ox Delivery Rate 11/04 1406 98.3 100 20 140/80 96 Room Air 11/04 0908 72 122/70 11/04 0906 72 122/70 11/04 0620 98.5 83 18 132/80 98 Room Air 11/03 2158 98.2 70 18 140/84 97 Room Air 11/03 2035 70 140/84 Intake & Output 11/04 1600 11/04 0800 11/04 0000 Intake Total 720 780 Output Total Balance 720 780 Intake, IV 600 300 Intake, Oral 120 480 Number 1 1 Bowel Movements Patient 121 lb Weight Current Medications Sig/Talat Start time Last Medication Dose Route Stop Time Status Admin Atenolol 25 MG TID 10/30 2100 AC 11/04 PO 0908 Bupropion HCl 300 MG QAM 10/31 0900 AC 11/04 PO 0907 Buspirone HCl 2.5 MG BID 10/30 2100 AC 11/04 PO 0906 Cholestyramine Resin 1 PAC BID 11/02 2100 AC 11/02 PO 2019 Dextrose/Sodium 1,000 ML Q13H 10/31 1915 AC 11/04 Chloride IV 0217 Diazepam 5 MG BID PRN 10/31 1545 AC 11/03 PO 0019 Dicyclomine HCl 40 MG 4 TIMES/DAY 11/02 0957 AC 11/04 PO 1241 Docusate Sodium 100 MG ONCE ONE 11/03 2100 DC 11/03 PO 11/03 2100 2035 Docusate Sodium 100 MG ONCE ONE 11/03 1515 DC 11/03 PO 11/03 1516 1543 Docusate Sodium 100 MG BID 10/30 2100 DC PO Estradiol 0.5 MG DAILY 10/31 09 AC 11/04 PO 0906 Fluconazole 100 MG DAILY 11/04 0900 AC 11/04 PO 0906 Fluoxetine HCl 60 MG DAILY 10/31 09 AC 11/04 PO 0907 Heparin Sodium 5,000 UNIT Q8 10/31 06 AC (Porcine) SC Levothyroxine Sodium 0.137 MG DAILY AC 10/31 07 AC 11/04 PO 0636 Losartan Potassium 50 MG DAILY 10/31 0900 AC 11/04 PO 0906 Magnesium Citrate 300 ML ONE ONE 11/03 1515 DC 11/03 PO 11/03 1516 1731 Metoclopramide HCl 10 MG TID 11/02 0959 AC 11/04 PO 0639 Omeprazole 20 MG DAILY AC 10/31 0700 AC 11/04 PO 0636 Oxycodone HCl 20 MG Q6 10/31 1800 AC 11/04 PO 1241 Pravastatin Sodium 40 MG 1700 10/31 1700 AC 11/03 PO 1731 Sodium Phosphate 1 UNIT ONCE PRN 11/03 2355 AC [place] Topiramate 50 MG BID 10/31 0900 AC 11/04 PO 0907 Physical Exam: HEENT: bora- moist mucosa Neck: no JVD Chest: clear Cor: RRR nl S1, S2 w/o murm Abd: BS+, soft, mild diffuse tenderness w/o guarding/rebound- improved Ext: no edema Labs: Laboratory Tests 11/04/17 0640: Anion Gap 10, Estimated GFR > 60, BUN/Creatinine Ratio 3.8 L Impression/Plan: #Abdominal Pain/Diarrhea - improved, however having loose BM due to colonoscopy bowel prep. Plan: Continue Bentyl, Reglan for pain/nausea. Colonoscopy today. Attempt to advance diet post colonoscopy. #Esophageal Candidiasis- noted on EGD yesterday. Plan: Continue Diflucan. #Hypokalemia- secondary to diarrhea Plan: Replete and follow. #Essential Hypertension - BP good as above. Plan: Continue Losartan/Atenolol. #H/O Migraine- no c/o. Plan: Continue home medication (Topamax). #Hypothyroidism - clinically euthyroid. Plan: Continue Levothyroxine. #Chronic pain syndrome- pain improved. Plan: Pain pathway.
[2017-11-04 16:28] VITALS: BP 160/80
[2017-11-04 22:29] VITALS: BP 162/84
[2017-11-05 06:13] VITALS: BP 144/78
--- NOTE | 2017-11-05 12:39 | PN- Att Addend ---
Attending Addendum Attending Brief Note S: The patient underwent colonoscopy yesterday without event. This morning is fearful of trying po intake as she has had increased pain and vomiting in past. She has been tolerating Diflucan. O: VS: Vital Signs Date Time Temp Pulse Resp B/P B/P Pulse O2 O2 Flow FiO2 Mean Ox Delivery Rate 11/06 0754 68 146/68 11/05 0846 68 146/68 11/05 0613 98.2 69 20 144/78 97 Current Medications Sig/Talat Start time Last Medication Dose Route Stop Time Status Admin Acetaminophen 650 MG ONCE ONE 11/04 2214 DC 11/04 PO 11/05 2215 221 Atenolol 25 MG TID 10/30 2100 AC 11/05 PO 0854 Bupropion HCl 300 MG QAM 10/31 09 DC 11/04 PO 0907 Buspirone HCl 2.5 MG BID 10/30 2100 AC 11/05 PO 0845 Chlorhexidine 1 GM .STK-MED ONE 11/05 753 DC Gluconate TOP 11/05 075 Cholestyramine Resin 1 PAC BID 11/02 2100 AC 11/02 PO 2019 Dextrose/Sodium 1,000 ML Q13H 10/31 1915 AC 11/04 Chloride IV 2155 Diazepam 5 MG BID PRN 10/31 1545 AC 11/05 PO 0850 Dicyclomine HCl 40 MG 4 TIMES/DAY 11/02 0957 AC 11/05 PO 1211 Estradiol 0.5 MG DAILY 10/31 0900 AC 11/05 PO 0847 Fluconazole 100 MG DAILY 11/04 0900 AC 11/05 PO 0844 Fluoxetine HCl 60 MG DAILY 11/06 09 AC PO Fluoxetine HCl 40 MG DAILY 11/05 09 DC 11/05 PO 0848 Fluoxetine HCl 60 MG DAILY 10/31 0900 DC 11/04 PO 0907 Heparin Sodium 5,000 UNIT Q8 10/31 0600 AC (Porcine) SC Levothyroxine Sodium 0.137 MG DAILY AC 10/31 07 AC 11/05 PO 0458 Losartan Potassium 50 MG DAILY 10/31 0900 AC 11/05 PO 0846 Metoclopramide HCl 10 MG TID 11/02 0959 AC 11/05 PO 0458 Omeprazole 20 MG DAILY AC 10/31 0700 AC 11/05 PO 0458 Oxycodone HCl 20 MG Q6 10/31 1800 AC 11/05 PO 1212 Pravastatin Sodium 40 MG 1700 10/31 1700 AC 11/04 PO 1704 Sodium Phosphate 1 UNIT ONCE PRN 11/03 2355 AC [place] Topiramate 50 MG BID 10/31 0900 AC 11/05 PO 0849 Physical Exam: HEENT: bora- moist mucosa Neck: no JVD Chest: clear Cor: RRR nl S1, S2 w/o murm Abd: BS+, soft, non-tender Ext: no edema Colonoscopy- unremarkable as per Dr. Hein. Laboratory Tests 11/04/17 0640: Anion Gap 10, Estimated GFR > 60, BUN/Creatinine Ratio 3.8 L Impression/Plan: #Abdominal Pain/Diarrhea - colonoscopy negative. Patient reluctant to try to take diet (only sipping cristal david). Plan: Continue Bentyl, Reglan for pain/nausea. Spoke with Dr. Hein and will advance diet to full liquids now. If tolerates may d/c home. #Esophageal Candidiasis- noted on EGD. Plan: Continue Diflucan. #Hypokalemia- secondary to diarrhea Plan: Replete and follow. #Essential Hypertension - BP good as above. Plan: Continue Losartan/Atenolol. #H/O Migraine- no c/o. Plan: Continue home medication (Topamax). #Hypothyroidism - clinically euthyroid. Plan: Continue Levothyroxine. #Chronic pain syndrome- pain improved. Plan: Pain pathway. #Depression/Anxiety- the patient states she usually takes Prozac 60 mg daily and was getting 40 mg here. Plan: Will increase Prozac to 60 mg daily as per her routine.
--- NOTE | 2017-11-05 13:12 | PN- Housestaff ---
Subjective Follow-up For: intractable abdominal pain Subjective: Patient seen and examined at bedside. She says that her pain has improved a lot and the residual spells of pain she has are in her "tolerance". She does however , wants to be able to start eating solid food again. She says that her diarrhea is all better now. She denies fever, chiils, vomiting, chest pain, shortness of breath. Review of Systems Constitutional: Reports: see HPI. Objective Last 24 Hrs of Vital Signs/I&O Tmax:98.2, HR:77, Rr:18, Pulse ox: 97% Physical Exam General Appearance: Alert, Oriented X3, Cooperative, No Acute Distress Skin: No Rashes Neck: Supple Cardiovascular: Regular Rate, Normal S1, Normal S2, No Murmurs Lungs: Clear to Auscultation Assessment/Plan Assessment: Ms. Brock is a 72-year-old female with a past medical history of migraines, hypertension, hypothyroid, chronic pain syndrome, depression who presents with a one-month history of intractable abdominal pain described as shaking twisting coiling, associated with weakness, nonbloody diarrhea, mental fatigue, and a 40 pound weight loss 20 of which were intentional in the setting of starting Cymbalta 4 weeks ago and discontinuing it 2 weeks ago. She is admitted for intractable abdominal pain. 1.Abdominal pain and diarrhea - resolving - EGD shows probable candiadal esophagitis -Restarted Bentyl, Reglan for pain/nausea -We will try to advance her diet as tolerated 2.Hypokalemia secondary to diarrhea -BEP daily to monitor 3.Hypertension of her medications. Patient was given her atenolol and losartan, which improved her blood pressure 4.Migraine 5.Hypothyroidism 6. Chronic pain syndrome DVT prophylaxis IV access Full code Problem List: 1. Hypertension 2. Diarrhea 3. Intractable abdominal pain Pain Ratin Pain Location: abdomen Pain Goal: Pain 4 or less Pain Plan: pathway Tomorrow's Labs & Rationales: cbc and bep
[2017-11-05 14:45] VITALS: BP 134/70
[2017-11-05] MEDS ORDERED: REGLAN10 M1 PO ×2 (17:20→17:23)
== END 2017-11-05 18:15 | DRG 392 ==
LOC: ERH 09:33 → 2NA 17:49 → ERHI 17:49 → ENRESERV 19:05 → ENTRNSPT 20:09 → EDTRNSPTSTS 20:32 → EDTRNSPT 20:32 → 2NA 20:38 → CMPTRNSPT 21:05 → 2NA 10-31 07:45 → ENTRNSPT 11-05 18:05 → EDTRNSPT 11-05 18:08 → EDTRNSPTSTS 11-05 18:08 → 2NA 11-05 18:15 → CMPTRNSPT 11-05 18:41
PROVIDERS: General Practice; Physician Assistant Medical
PROC: 0DB68ZX Excision of Stomach, Via Natural or Artificial Opening Endoscopic, Diagnostic (ICD-10-PCS; principal; 2017-11-03)
PROC: 0DB58ZX Excision of Esophagus, Via Natural or Artificial Opening Endoscopic, Diagnostic (ICD-10-PCS; principal; 2017-11-03)
PROC: 0DB98ZX Excision of Duodenum, Via Natural or Artificial Opening Endoscopic, Diagnostic (ICD-10-PCS; principal; 2017-11-03)
DX: K58.2 Mixed irritable bowel syndrome (principal); B37.81 Candidal esophagitis; R10.9 Unspecified abdominal pain; R19.7 Diarrhea, unspecified; E03.9 Hypothyroidism, unspecified; I10 Essential (primary) hypertension; E78.5 Hyperlipidemia, unspecified; G89.4 Chronic pain syndrome; F32.9 Major depressive disorder, single episode, unspecified; R63.4 Abnormal weight loss; Z68.23 Body mass index [BMI] 23.0-23.9, adult; E87.6 Hypokalemia; M79.7 Fibromyalgia; F41.9 Anxiety disorder, unspecified; G43.909 Migraine, unspecified, not intractable, without status migrainosus; K30 Functional dyspepsia; Z88.1 Allergy status to other antibiotic agents; Z88.5 Allergy status to narcotic agent; Z79.891 Long term (current) use of opiate analgesic; Z90.49 Acquired absence of other specified parts of digestive tract; Z90.710 Acquired absence of both cervix and uterus
CPT/HCPCS: 2NASP; 82705; 84133; 84300; 36415; 36592; 71045; 74177; 82436; 87015; 87045; 87899; 87899-59; 88305; 88312; 93005; 93010; 96374; 96375; 96376; J0500; J1644; J1650; J3250; J3490; J7042